=== PATIENT | male | born 1940 | race Caucasian/White ===

== ENCOUNTER 2017-11-02 07:47 | Inpatient (IN) ==
--- OUTSIDE RECORDS SUMMARY | 2017-11-02 08:06 | External Medical Summary | Continuity of Care Document ---
:1940 Author Organization [facility] Allergies Active Description Code Type Severity Reaction Onset Reported/ Identified Relationship Clinical to Patient Status Yes No Known NKDA N/A N/A 10/24/2017 Drug Allergy Medications Medication Packaging Start Date Stop Date Route Dosage Sig 04/14/2017 10/24/2017 1 Primidone 50 MG BID Oral Tablet 04/14/2017 10/14/2017 1 Prednisone 50 MG Q1D Oral Tablet 10/25/2017 10/31/2017 1 quetiapine 25 MG BID Oral Tablet [Seroquel] Problems Date Dx Attending Type Code Diagnosis Diagnosed By Coded 04/14/2017 LUIS CASTAÑEDA G25.0 Essential tremor 04/14/2017 LUIS CASTAÑEDA M79.601 Pain in right arm 04/14/2017 LUIS CASTAÑEDA R53.83 Other fatigue 09/21/2017 F F17.210 Nicotine dependence, cigarettes, uncomplicated 09/21/2017 F F32.9 Major depressive disorder, single episode, unspecified 09/21/2017 F I10 Essential (primary) hypertension 09/21/2017 F I25.10 Atherosclerotic heart disease of [place] coronary artery without angina pectoris 09/21/2017 F I50.9 Heart failure, unspecified 09/21/2017 F J44.1 Chronic obstructive pulmonary disease with (acute) exacerbation 09/21/2017 F J96.22 Acute and chronic respiratory failure with hypercapnia 09/21/2017 F R06.89 Other abnormalities of breathing 09/21/2017 F R29.6 Repeated falls 09/21/2017 F R41.0 Disorientation, unspecified 2017 F R63.4 Abnormal weight loss 10/14/2017 LUIS CASTAÑEDA F17.210 Nicotine dependence, cigarettes, uncomplicated 10/14/2017 LUIS CASTAÑEDA F32.9 Major depressive disorder, single episode, unspecified 10/14/2017 LUIS CASTAÑEDA G47.36 Sleep related hypoventilation in conditions classified elsewhere 10/14/2017 LUIS CASTAÑEDA I10 Essential (primary) hypertension 10/14/2017 LUIS CASTAÑEDA I25.10 Atherosclerotic heart disease of [place] coronary artery without angina pectoris 10/14/2017 LUIS CASTAÑEDA J44.1 Chronic obstructive pulmonary disease with (acute) exacerbation 10/14/2017 LUIS CASTAÑEDA J96.22 Acute and chronic respiratory failure with hypercapnia 10/14/2017 LUIS CASTAÑEDA R29.6 Repeated falls 10/14/2017 LUIS CASTAÑEDA R41.0 Disorientation, unspecified 10/24/2017 HARSH VILLEDA I10 Essential (primary) hypertension 10/24/2017 HARSH VILLEDA K59.00 Constipation, unspecified 10/24/2017 HARHS VILLEDA L03.90 Cellulitis, unspecified 10/24/2017 HARSH VILLEDA R45.1 Restlessness and agitation 10/24/2017 HARSH VILLEDA R60.0 Localized edema Procedures Code Description [place] [id number] OFFICE VISIT 04/14/2017 DETAILED [id number] OFFICE VISIT 09/21/2017 HIGH Results There is no data. Encounters ACCT Visit Discharge Status Pt. Type Provider Facility Loc./Unit Complaint No. Date/Time [id number] 10/24/2017 10/24/2017 CLS Outpatient CHICHOT PIMG 08:32:00 23:59:59 , HARSH [id number] 10/14/2017 10/14/2017 CLS Outpatient GARRY, PIMG 09:31:00 23:59:59 LUIS [id number] 04/14/2017 04/14/2017 CLS Outpatient GARRY, PIMG 14:22:00 23:59:59 LUIS [id number] 10/31/2017 ACT Outpatient GARRY, PIMG 11:25:00 LUIS [id number] 10/25/2017 Document 16:57:00 Registration [id number] 09/21/2017 Document 15:57:00 Registration [id number] 04/14/2017 Document 14:22:00 Registration
[2017-11-02] MEDS ORDERED: SALINE FLUSH 10ml SYRINGE IVF PRN (08:14)
[2017-11-02] MEDS ORDERED: FUROSEMIDE 40 MG/4 ML INJECTION IVP ONE (08:16)
--- NOTE | 2017-11-02 08:25 | Emergency Department Report ---
Medical Clearance HPI - General Stated complaint: [facility] eval Time Seen by Provider: 11/02/17 07:53 Source: patient, RN notes reviewed, old records reviewed, other ([facility] coordinator) Mode of arrival: ambulatory Limitations: altered mental status (Dementia) - History of Present Illness HPI Narrative: 77yo man presented to the ER by his [facility] facility ([place], [place]) for worsening mental status. Pt has been preliminarily evaluated for treatment in [facility]. Presented to the ER for medical clearance. Pt arrives confused, combative, but somnolent. After difficulty obtaining initial labs, pt fell back asleep almost immediately. MD complaint: medical clearance requested Onset (ago): week(s) Reason for Medical Clearance: medical condition, psychiatric condition Place: home Alleged Intoxication: No Compliant with Home Medications: Yes Associated Symptoms: denies other symptoms Treatments Prior to Arrival: medication Home medications: Home Medications Medication Instructions Recorded Confirmed Albuterol/Ipratropium [Duoneb] 1 unit AEROSOL 5XD 11/02/17 11/02/17 Amoxicillin/Potassium Clav 1 each PO BID 11/02/17 11/02/17 [Augmentin 875-125 Tablet] CALCIUM CARBONATE Chewable [Tums] 1,000 mg PO Q4H PRN 11/02/17 11/02/17 CALCIUM CARBONATE Chewable [Tums] 2 tab PO AM 11/02/17 11/02/17 Doxycycline [Vibramycin] 100 mg PO BID 11/02/17 11/02/17 Furosemide [Lasix] 80 mg PO BID 11/02/17 11/02/17 Haloperidol [Haldol] 5 mg PO PRN PRN 11/02/17 11/02/17 LORazepam [Ativan] 1 mg PO QID 11/02/17 11/02/17 Morphine Sulfate 0.5 mg PO Q1H PRN 11/02/17 11/02/17 Morphine Sulfate [Morphine Sulfate 15 mg PO BID 11/02/17 11/02/17 ER] Oseltamivir Cap [Tamiflu] 75 mg PO DAILY 11/02/17 11/02/17 PEG 3350 17gm PACKET [Miralax] 17 gm PO BID 11/02/17 11/02/17 Potassium Chloride [K-Tab ER] 20 meq PO AM 11/02/17 11/02/17 Quetiapine Fumarate [Seroquel] 100 mg PO HS 11/02/17 11/02/17 Quetiapine [Seroquel] 50 mg PO DAILY 11/02/17 11/02/17 Simethicone 125 mg PO Q6H PRN 11/02/17 11/02/17 Tamsulosin [Flomax] 0.4 mg PO HS 11/02/17 11/02/17 Allergies/Adverse reactions: Allergies Allergy/AdvReac Type Severity Reaction Status Date / Time No Known Allergies Allergy Verified 11/02/17 09:11 Review of Systems Limitations: ROS unobtainable due to patient's medical condition PFSH Patient Stated Medical History Angina Yes Congestive Heart Failure Yes Coronary Artery Disease Yes Hypertension Yes Myocardial Infarction Yes Chronic Obstructive Pulmonary Yes Disease (COPD) Other GI Yes: POSTCHOLECYSTECTOMY SYNDROME Other Yes: HX BLADDER CANCER Depression Yes Medical History Updates: Metabolic encephalopathy. HL. AMI. PVD. Nicotine dependence. CHF. Bladder malignancy. MDD. CAD. Postcholecystectomy syndrome. HTN. COPD - Social History Smoking status: Former smoker Physical Exam - Limitations Limitations: no limitations - General General appearance: alert, in no apparent distress - Normal Exams: Head:: Normocephalic without trauma Eyes:: Pupils are PERRLA w/ EOMI, No scleral icterus, irritation, or foreign bodies noted ENMT:: No facial trauma, nasal exudates, pharyngeal erythema, or exudates are noted Neck:: Full range of motion, without adenopathy Lymphatic:: No lymphadenopathy Musculoskeletal:: No tenderness, or deformity noted, good range of motion, all extremities - Chest Chest inspection: Present: normal inspection, symmetric chest wall rise. Absent : tenderness, rash - Respiratory Respiratory exam: Present: crackles (In LL). Absent: normal lung sounds bilaterally (Decreased air movement throughout), respiratory distress, wheezes, prolonged expiratory phase - Cardiovascular Cardiovascular exam: Present: regular rate, normal rhythm, normal heart sounds. Absent: systolic murmur, diastolic murmur - Abdominal Exam Abdominal exam: Present: soft, normal bowel sounds. Absent: distention, tenderness, guarding, rebound, rigidity - Extremities Exam Extremities exam: Present: full ROM, normal capillary refill, pedal edema ( Severe pitting edema (4+) with weeping to pts knees b/l), other (Stasis dermatitis with scaling to knee). Absent: normal inspection, tenderness, joint swelling - Skin Skin exam: Present: warm, dry, intact, rash (See extremity exam notes) - Neurological Exam Neurological exam: Present: CN II-XII intact, reflexes normal. Absent: alert, oriented X3, normal gait (Halting, ataxic), motor sensory deficit - Psychiatric Psychiatric exam: Present: flat affect Course - Consultations Consultation #1: Dr. Rasheed: No indications for urgent diaphragmatic hernia repair. Likely chronic; unlikely to require repair in the near future until stable for surgery. Time: 09:11 Consultation #2: Hospitalist: Unclear whether pts sx are chronic or acute. Will present to ER to eval and help determine dispo ([facility] with consult or admission locally). If pts resp panel is positive; will admit. If not, can consult in [facility]. Time: 09:33 Vital Signs Temperature 97.6 F 11/02/17 07:47 Pulse Rate 84 11/02/17 07:47 Respiratory Rate 18 11/02/17 07:47 Blood Pressure 139/64 11/02/17 07:47 Pulse Oximetry 95 11/02/17 07:47 Temperature 97.6 F 11/02/17 07:47 Pulse Rate 81 11/02/17 10:45 Respiratory Rate 12 11/02/17 10:45 Blood Pressure 127/58 11/02/17 10:45 Pulse Oximetry 90 11/02/17 10:45 Medical Clearance - [facility] Narrative Medical decision making narrative: Pt with chronic medical issues without acute changes today. Resp panel is negative. Will contact [facility] for admission. - Differential Diagnosis Likely: urinary tract infection (encephalopathy, uremia, dementia, hypoventilation) - Medical Records Attestation: I reviewed the patient's medical records. - Lab Data Attestation: I reviewed the patient's lab results. Result diagrams: 11/02/17 08:03 11/02/17 08:03 Lab Results 11/02/17 11/02/17 11/02/17 Range/Units 07:59 08:03 08:03 WBC 6.5 (4.5-11.0) T/MM3 RBC 4.84 (4.50-5.90) M/MM3 Hgb 14.7 (13.5-17.5) GM/DL Hct 46.0 (41-53) % MCV 95.0 (80-100) UM3 MCH 30.4 (26-34) UUG MCHC 32.0 (31-37) GM/DL RDW Std Deviation 44.2 (36.9-50.2) FL Plt Count 243 (130-400) T/MM3 MPV 9.1 L (9.4-12.4) UM3 Immature Gran % (Auto) 0.3 (0.0-0.5) % Neut % (Auto) 56.0 (33-66) % Lymph % (Auto) 29.0 (23-45) % [place] % (Auto) 9.5 H (0-9.0) % Eos % (Auto) 4.3 H (0-4) % Baso % (Auto) 0.9 (0-2) % Neut # (Auto) 3.6 (1.8-7.7) T/MM3 Lymph # (Auto) 1.9 (1-4.8) T/MM3 [place] # (Auto) 0.6 (0-0.8) T/MM3 Eos # (Auto) 0.3 (0-0.5) T/MM3 Baso # (Auto) 0.1 (0-0.2) T/MM3 Abs Immat Gran (auto) 0.02 (0.00-0.03) T/MM3 VBG pH (7.31-7.41) VBG pCO2 (40-52) MMHG VBG pO2 (40-52) MMHG VBG HCO3 (22-26) MEQ/L VBG Total CO2 MEQ/L VBG O2 Saturation % VBG Base Excess (-2.0-2.0) MMOL/L O2 Delivery Method FiO2 % Turbidity < 20 (0-20) Sodium 143 (134-144) MEQ/L Potassium 3.7 (3.6-5) MEQ/L Chloride 101 (98-107) MEQ/L Carbon Dioxide 31 H (22-30) MEQ/L Anion Gap 11 (5-15) MEQ/L BUN 13.0 (9-20) MG/DL Creatinine 1.1 (0.8-1.5) MG/DL GFR Calculation 65 BUN/Creatinine Ratio 12 (6-26) RATIO Glucose 101 (75-110) MG/DL Calculated Osmolality 275 (261-280) MOSM/KG Calcium 9.7 (8.4-10.2) MG/DL Total Bilirubin 0.70 (0.20-1.30) MG/DL Icterus Index < 2 (0-7) AST 31 (17-59) U/L ALT 35 (21-72) U/L Alkaline Phosphatase 142 H (38-126) U/L Ammonia (9-33) UMOL/L Troponin I (0-0.12) ng/ml B-Natriuretic Peptide (0-175) pg/mL Total Protein 7.5 (6.3-8.2) G/DL Albumin 4.1 (3.5-5.0) G/DL Globulin 3.4 (2.4-3.6) G/DL Albumin/Globulin Ratio 1.2 (1.1-2.2) RATIO TSH 3.18 (0.47-4.68) MIU/L Specimen Hemolysis < 15 (0-25) Ur Collection Type Urine, clean catch Urine Color Yellow (YELLOW) Urine Clarity Clear Urine pH 6.0 (5.0-8.0) Ur Specific [place] 1.010 L (1.015-1.025) Urine Protein Negative (NEGATIVE) Urine Glucose (UA) Negative (NEGATIVE) Urine Ketones Negative (NEGATIVE) Urine Occult Blood Negative (NEGATIVE) Urine Nitrate Negative (NEGATIVE) Urine Bilirubin Negative (NEGATIVE) Urine Urobilinogen 0.2 (NORMAL) EU/DL Ur Leukocyte Esterase Negative (NEGATIVE) Urinalysis Comment Microscopic not ind. Salicylates < 1.0 L (2-20) MG/DL Urine Opiates Screen ng/mL Ur Oxycodone Screen ng/mL Urine Methadone Screen ng/mL Ur Propoxyphene Screen ng/mL Acetaminophen < 10 L (10-30) UG/ML Ur Barbiturates Screen ng/mL U Tricyclic Antidepress ng/mL Ur Phencyclidine Scrn ng/mL Ur Amphetamines Screen ng/mL U Methamphetamines Scrn ng/mL U Benzodiazepines Scrn ng/mL Urine Cocaine Screen ng/mL U Cannabinoids Screen ng/mL Ur Drug Screen Confirm Alcohol, Quantitative <10 (<10) MG/DL Adenovirus (PCR) (Negative) B.parapertussis DNA PCR (Negative) C. pneumoniae DNA (PCR) (Negative) Coronavirus OC43 (PCR) (Negative) Coronavirus HKU1 (PCR) (Negative) Coronavirus 229E (PCR) (Negative) Coronavirus NL63 (PCR) (Negative) Human Metapneumovir PCR (Negative) Influenza Type A (PCR) (Negative) Influenza Type B (PCR) (Negative) M. pneumoniae (PCR) (Negative) Parainfluenza 1 (PCR) (Negative) Parainfluenza 2 (PCR) (Negative) Parainfluenza 3 (PCR) (Negative) Parainfluenza 4 (PCR) (Negative) RSV (PCR) (Negative) Entero/Rhino (PCR) (Negative) 11/02/17 11/02/17 11/02/17 Range/Units 08:03 08:03 08:03 WBC (4.5-11.0) T/MM3 RBC (4.50-5.90) M/MM3 Hgb (13.5-17.5) GM/DL Hct (41-53) % MCV (80-100) UM3 MCH (26-34) UUG MCHC (31-37) GM/DL RDW Std Deviation (36.9-50.2) FL Plt Count (130-400) T/MM3 MPV (9.4-12.4) UM3 Immature Gran % (Auto) (0.0-0.5) % Neut % (Auto) (33-66) % Lymph % (Auto) (23-45) % [place] % (Auto) (0-9.0) % Eos % (Auto) (0-4) % Baso % (Auto) (0-2) % Neut # (Auto) (1.8-7.7) T/MM3 Lymph # (Auto) (1-4.8) T/MM3 [place] # (Auto) (0-0.8) T/MM3 Eos # (Auto) (0-0.5) T/MM3 Baso # (Auto) (0-0.2) T/MM3 Abs Immat Gran (auto) (0.00-0.03) T/MM3 VBG pH (7.31-7.41) VBG pCO2 (40-52) MMHG VBG pO2 (40-52) MMHG VBG HCO3 (22-26) MEQ/L VBG Total CO2 MEQ/L VBG O2 Saturation % VBG Base Excess (-2.0-2.0) MMOL/L O2 Delivery Method FiO2 % Turbidity (0-20) Sodium (134-144) MEQ/L Potassium (3.6-5) MEQ/L Chloride (98-107) MEQ/L Carbon Dioxide (22-30) MEQ/L Anion Gap (5-15) MEQ/L BUN (9-20) MG/DL Creatinine (0.8-1.5) MG/DL GFR Calculation BUN/Creatinine Ratio (6-26) RATIO Glucose (75-110) MG/DL Calculated Osmolality (261-280) MOSM/KG Calcium (8.4-10.2) MG/DL Total Bilirubin (0.20-1.30) MG/DL Icterus Index (0-7) AST (17-59) U/L ALT (21-72) U/L Alkaline Phosphatase (38-126) U/L Ammonia (9-33) UMOL/L Troponin I < 0.012 (0-0.12) ng/ml B-Natriuretic Peptide 344 H (0-175) pg/mL Total Protein (6.3-8.2) G/DL Albumin (3.5-5.0) G/DL Globulin (2.4-3.6) G/DL Albumin/Globulin Ratio (1.1-2.2) RATIO TSH (0.47-4.68) MIU/L Specimen Hemolysis < 15 (0-25) Ur Collection Type Urine Color (YELLOW) Urine Clarity Urine pH (5.0-8.0) Ur Specific [place] (1.015-1.025) Urine Protein (NEGATIVE) Urine Glucose (UA) (NEGATIVE) Urine Ketones (NEGATIVE) Urine Occult Blood (NEGATIVE) Urine Nitrate (NEGATIVE) Urine Bilirubin (NEGATIVE) Urine Urobilinogen (NORMAL) EU/DL Ur Leukocyte Esterase (NEGATIVE) Urinalysis Comment Salicylates (2-20) MG/DL Urine Opiates Screen Positive ng/mL Ur Oxycodone Screen Negative ng/mL Urine Methadone Screen Negative ng/mL Ur Propoxyphene Screen Negative ng/mL Acetaminophen (10-30) UG/ML Ur Barbiturates Screen Negative ng/mL U Tricyclic Antidepress Positive ng/mL Ur Phencyclidine Scrn Negative ng/mL Ur Amphetamines Screen Negative ng/mL U Methamphetamines Scrn Negative ng/mL U Benzodiazepines Scrn Positive ng/mL Urine Cocaine Screen Negative ng/mL U Cannabinoids Screen Negative ng/mL Ur Drug Screen Confirm Sent out Alcohol, Quantitative (<10) MG/DL Adenovirus (PCR) (Negative) B.parapertussis DNA PCR (Negative) C. pneumoniae DNA (PCR) (Negative) Coronavirus OC43 (PCR) (Negative) Coronavirus HKU1 (PCR) (Negative) Coronavirus 229E (PCR) (Negative) Coronavirus NL63 (PCR) (Negative) Human Metapneumovir PCR (Negative) Influenza Type A (PCR) (Negative) Influenza Type B (PCR) (Negative) M. pneumoniae (PCR) (Negative) Parainfluenza 1 (PCR) (Negative) Parainfluenza 2 (PCR) (Negative) Parainfluenza 3 (PCR) (Negative) Parainfluenza 4 (PCR) (Negative) RSV (PCR) (Negative) Entero/Rhino (PCR) (Negative) 11/02/17 11/02/17 11/02/17 Range/Units 08:43 08:43 09:43 WBC (4.5-11.0) T/MM3 RBC (4.50-5.90) M/MM3 Hgb (13.5-17.5) GM/DL Hct (41-53) % MCV (80-100) UM3 MCH (26-34) UUG MCHC (31-37) GM/DL RDW Std Deviation (36.9-50.2) FL Plt Count (130-400) T/MM3 MPV (9.4-12.4) UM3 Immature Gran % (Auto) (0.0-0.5) % Neut % (Auto) (33-66) % Lymph % (Auto) (23-45) % [place] % (Auto) (0-9.0) % Eos % (Auto) (0-4) % Baso % (Auto) (0-2) % Neut # (Auto) (1.8-7.7) T/MM3 Lymph # (Auto) (1-4.8) T/MM3 [place] # (Auto) (0-0.8) T/MM3 Eos # (Auto) (0-0.5) T/MM3 Baso # (Auto) (0-0.2) T/MM3 Abs Immat Gran (auto) (0.00-0.03) T/MM3 VBG pH 7.400 (7.31-7.41) VBG pCO2 58 H (40-52) MMHG VBG pO2 19 L (40-52) MMHG VBG HCO3 36 H (22-26) MEQ/L VBG Total CO2 37.7 MEQ/L VBG O2 Saturation 29.0 % VBG Base Excess 9.2 H (-2.0-2.0) MMOL/L O2 Delivery Method Room air FiO2 % 21.0 Turbidity (0-20) Sodium (134-144) MEQ/L Potassium (3.6-5) MEQ/L Chloride (98-107) MEQ/L Carbon Dioxide (22-30) MEQ/L Anion Gap (5-15) MEQ/L BUN (9-20) MG/DL Creatinine (0.8-1.5) MG/DL GFR Calculation BUN/Creatinine Ratio (6-26) RATIO Glucose (75-110) MG/DL Calculated Osmolality (261-280) MOSM/KG Calcium (8.4-10.2) MG/DL Total Bilirubin (0.20-1.30) MG/DL Icterus Index (0-7) AST (17-59) U/L ALT (21-72) U/L Alkaline Phosphatase (38-126) U/L Ammonia < 9 L (9-33) UMOL/L Troponin I (0-0.12) ng/ml B-Natriuretic Peptide (0-175) pg/mL Total Protein (6.3-8.2) G/DL Albumin (3.5-5.0) G/DL Globulin (2.4-3.6) G/DL Albumin/Globulin Ratio (1.1-2.2) RATIO TSH (0.47-4.68) MIU/L Specimen Hemolysis (0-25) Ur Collection Type Urine Color (YELLOW) Urine Clarity Urine pH (5.0-8.0) Ur Specific [place] (1.015-1.025) Urine Protein (NEGATIVE) Urine Glucose (UA) (NEGATIVE) Urine Ketones (NEGATIVE) Urine Occult Blood (NEGATIVE) Urine Nitrate (NEGATIVE) Urine Bilirubin (NEGATIVE) Urine Urobilinogen (NORMAL) EU/DL Ur Leukocyte Esterase (NEGATIVE) Urinalysis Comment Salicylates (2-20) MG/DL Urine Opiates Screen ng/mL Ur Oxycodone Screen ng/mL Urine Methadone Screen ng/mL Ur Propoxyphene Screen ng/mL Acetaminophen (10-30) UG/ML Ur Barbiturates Screen ng/mL U Tricyclic Antidepress ng/mL Ur Phencyclidine Scrn ng/mL Ur Amphetamines Screen ng/mL U Methamphetamines Scrn ng/mL U Benzodiazepines Scrn ng/mL Urine Cocaine Screen ng/mL U Cannabinoids Screen ng/mL Ur Drug Screen Confirm Alcohol, Quantitative (<10) MG/DL Adenovirus (PCR) Negative (Negative) B.parapertussis DNA PCR Negative (Negative) C. pneumoniae DNA (PCR) Negative (Negative) Coronavirus OC43 (PCR) Negative (Negative) Coronavirus HKU1 (PCR) Negative (Negative) Coronavirus 229E (PCR) Negative (Negative) Coronavirus NL63 (PCR) Negative (Negative) Human Metapneumovir PCR Negative (Negative) Influenza Type A (PCR) Negative (Negative) Influenza Type B (PCR) Negative (Negative) M. pneumoniae (PCR) Negative (Negative) Parainfluenza 1 (PCR) Negative (Negative) Parainfluenza 2 (PCR) Negative (Negative) Parainfluenza 3 (PCR) Negative (Negative) Parainfluenza 4 (PCR) Negative (Negative) RSV (PCR) Negative (Negative) Entero/Rhino (PCR) Negative (Negative) - Radiology Data Attestation: I reviewed the patient's radiology results. CXR: Impression: 1. Multiple abnormalities including a probable large diaphragmatic defects containing multiple loops of bowel. 2. Bilateral pleural thickening or mass could be due to old trauma, pleural lipomas or pleural masses. Recommend correlation with prior studies to determine the chronicity of this finding. 3. No obvious pneumonia or congestive failure. - EKG Data EKG #1 EKG attestation: Yes: I reviewed and interpreted this EKG. EKG shows normal: sinus rhythm Rhythm: other (SVCs) Voltage: decreased voltage throughout (C/w pulm dz; RVH) Interpretation: other (RVH; c/w pulm dz) Disposition Clinical Impression: Dementia with behavioral disturbance Qualifiers: Dementia type: unspecified type Qualified Code(s): F03.91 - Unspecified dementia with behavioral disturbance Disposition: 64 To [facility] Print Language: Lao Condition: Stable Prescriptions: No Action CALCIUM CARBONATE Chewable [Tums] 1,000 mg PO Q4H PRN PRN Reason: Epigastric Distress Albuterol/Ipratropium [Duoneb] 1 unit AEROSOL 5XD Morphine Sulfate 0.5 mg PO Q1H PRN PRN Reason: Pain Haloperidol [Haldol] 5 mg PO PRN PRN PRN Reason: Agitation LORazepam [Ativan] 1 mg PO QID Morphine Sulfate [Morphine Sulfate ER] 15 mg PO BID PEG 3350 17gm PACKET [Miralax] 17 gm PO BID Doxycycline [Vibramycin] 100 mg PO BID Amoxicillin/Potassium Clav [Augmentin 875-125 Tablet] 1 each PO BID CALCIUM CARBONATE Chewable [Tums] 2 tab PO AM Tamsulosin [Flomax] 0.4 mg PO HS Oseltamivir Cap [Tamiflu] 75 mg PO DAILY Quetiapine Fumarate [Seroquel] 100 mg PO HS Potassium Chloride [K-Tab ER] 20 meq PO AM Simethicone 125 mg PO Q6H PRN PRN Reason: Indigestion Furosemide [Lasix] 80 mg PO BID Quetiapine [Seroquel] 50 mg PO DAILY Referrals: Dat Szymanski MD [Family Provider] - Time of Disposition: 11:38 - Seen By: physician
--- NOTE | 2017-11-02 08:33 | XRay Report ---
Indication: clearance PROCEDURE: XR chest 1V: Encounter: Initial Comparison: None Findings: There is an abnormal appearance to the lower chest. There is diffuse basilar opacity with multiple foci of gas probably representing multiple bowel loops in a large diaphragmatic defect and hiatal hernia. There is also smoothly marginated opacity along the right and left lateral lower chest wall measuring up to 3 cm in thickness on the right and 2 cm in thickness on the left. This most likely represents pleural thickening or mass. Mild emphysema is also seen. No pneumothorax or effusion. No definite pneumonia. Cardiac silhouette is moderately enlarged. Pulmonary vascularity appears normal. Impression: 1. Multiple abnormalities including a probable large diaphragmatic defects containing multiple loops of bowel. 2. Bilateral pleural thickening or mass could be due to old trauma, pleural lipomas or pleural masses. Recommend correlation with prior studies to determine the chronicity of this finding. 3. No obvious pneumonia or congestive failure. .
[2017-11-02] MEDS ORDERED: FentaNYL 100 MCG/2 ML INJECTION IVP ONE (08:42)
[2017-11-02] MEDS ORDERED: CALCIUM CARBONATE Chewable 500mg TABLET PO PRN (12:52)
[2017-11-02] MEDS ORDERED: SIMETHICONE 125 MG CAPSULE PO PRN (12:52)
[2017-11-02] MEDS ORDERED: HALOPERIDOL 0.5 MG TABLET PO PRN (12:52)
[2017-11-02] MEDS ORDERED: HALOPERIDOL 5 MG/ML INJECTION IM PRN (12:52)
[2017-11-02] MEDS ORDERED: LORazepam 0.5 MG TABLET PO PRN (12:52)
[2017-11-02 13:12] VITALS: BMI 27.8
[2017-11-02] MEDS: LORazepam 1 MG TABLET PO SCH ×2 (16:34→20:58)
[2017-11-02] MEDS: AMOX/CLAV 875 MG/125 MG TABLET PO SCH (16:34)
[2017-11-02] MEDS: CALCIUM CARBONATE Chewable 500mg TABLET PO SCH (16:34)
[2017-11-02] MEDS: ALBUTEROL/IPRATROPIUM 2.5mg-0.5mg/3ml NEB AEROSOL SCH ×4 (16:35→19:36)
[2017-11-02] MEDS: FUROSEMIDE 80 MG TABLET PO SCH (17:27)
--- NOTE | 2017-11-02 18:21 | History & Physical Report ---
History of Present Illness Date: 11/02/17 Chief complaint: agitation HPI: Mr Bull is a 77 yr old gentleman who resides at [facility] in [place], [place]. It is reported that for the last several days he has had increased agitation in behaviors including attempting to urinate on a copy machine, confronting staff, trying to open medication cart, along with increased confusion at night. Patient was sent to [facility] emergency room for medical evaluation with planned acceptance to the [facility] for further psychiatric evaluation and treatment. Clinical workup was performed. CBC, chem strip out, TSH, urinalysis, troponin were all normal. Chest x-ray did not reveal any acute infiltrates or edema. As per records, patient was placed on Tamiflu on 10/27 for prophylaxis. Respiratory panel was obtained in the ER, however, it was all negative. Patient was accepted and admitted to the [facility] unit for further evaluation and treatment. Review of Systems All systems PM: 10-point ROS was reviewed, no additional remarkable complaints except Review of systems: At time of examination antonio denies ROS. He states his lower ext edema is "baseline" and denies tenderness. Past Medical History Patient Stated Medical History COPD, intermittent chronic oxygen use 2 liters. Hypertension. Congestive heart failure. Peripheral vascular disease Coronary artery disease with [place] history. Hyperlipidemia. Depression. History of bladder cancer. History of metabolic encephalopathy. Chronic lower extremity edema. Chronic tobacco dependence Surgical History: Tonsillectomy. Cholecystectomy. Cardiac bypass 3. Bladder procedures Family History Updates: Mother- in her 70s from dementia - Social History Smoking status: Current every day smoker Substance use type: does not use Alcohol intake frequency: does not drink Housing: custodial ([place], [place]) Current occupational status: retired Social history: PCP Dr Dat Szymanski Medications Home Medications Medication Instructions Recorded Confirmed Type Albuterol/Ipratropium [Duoneb] 1 unit AEROSOL 5XD 11/02/17 11/02/17 History Amoxicillin/Potassium Clav 1 each PO BID 11/02/17 11/02/17 History [Augmentin 875-125 Tablet] CALCIUM CARBONATE Chewable [Tums] 1,000 mg PO Q4H PRN 11/02/17 11/02/17 History CALCIUM CARBONATE Chewable [Tums] 2 tab PO AM 11/02/17 11/02/17 History Doxycycline [Vibramycin] 100 mg PO BID 11/02/17 11/02/17 History Furosemide [Lasix] 80 mg PO BID 11/02/17 11/02/17 History Haloperidol [Haldol] 5 mg PO PRN PRN 11/02/17 11/02/17 History LORazepam [Ativan] 1 mg PO QID 11/02/17 11/02/17 History Morphine Sulfate 0.5 mg PO Q1H PRN 11/02/17 11/02/17 History Morphine Sulfate [Morphine Sulfate 15 mg PO BID 11/02/17 11/02/17 History ER] Oseltamivir Cap [Tamiflu] 75 mg PO DAILY 11/02/17 11/02/17 History PEG 3350 17gm PACKET [Miralax] 17 gm PO BID 11/02/17 11/02/17 History Potassium Chloride [K-Tab ER] 20 meq PO AM 11/02/17 11/02/17 History Quetiapine Fumarate [Seroquel] 100 mg PO HS 11/02/17 11/02/17 History Quetiapine [Seroquel] 50 mg PO DAILY 11/02/17 11/02/17 History Simethicone 125 mg PO Q6H PRN 11/02/17 11/02/17 History Tamsulosin [Flomax] 0.4 mg PO HS 11/02/17 11/02/17 History Allergies Allergy/AdvReac Type Severity Reaction Status Date / Time No Known Allergies Allergy Verified 11/02/17 09:11 Exam Vital Signs: Temperature 97.4 F 11/02/17 16:00 Pulse Rate 73 11/02/17 17:25 Respiratory Rate 16 11/02/17 17:25 Blood Pressure 99/58 11/02/17 16:00 Pulse Oximetry 97 11/02/17 17:25 Height/Weight/BMI: Height 1.88 m Weight 98.5 kg Body Mass Index 27.8 - Constitutional Present: no acute distress, well nourished, well developed - Routine HEENT Exam Eye: Present: EOMI ENT: Present: mucous membranes moist, dentition normal - Routine Respiratory Exam Present: CTA bilaterally. Absent: wheezes - Routine Cardiovascular Exam Present: RRR, S1, S2. Absent: murmur - Routine Abdominal Exam Present: soft, normoactive bowel sounds, non distended. Absent: tenderness - Routine Extremities Exam Present: edema (1-2+) Comments: Erythema bilateral lower ext - Routine Back/Spine/Pelvis Exam Back/Spine: Present: full ROM - Routine Skin Exam Present: intact, dry, warm - Routine Neurological Exam Present: alert, oriented X3, CN II-XII intact, moving all extremities - Routine Psychiatric Exam Present: cooperative Results - Labs CBC & Chem 7: 11/02/17 08:03 11/02/17 08:03 Assessment and Plan (1) Abnormal behavior Current visit: Yes Status: Acute (2) PVD (peripheral vascular disease) Current visit: Yes Status: Acute Assessment and Plan: Impression Increased behaviors Acute on chronic peripheral edema- recent increased Lasix dose Chronic PVD HTN CHF COPD with o2 use PRN and Night CAD Hyperlipidemia Depression Plan Agree with admission to [facility] under the care of Dr Sharpe for evaluation of increase behaviors Medically he is noted to have erythema and mild edema to lower ext. It is unclear is baseline status of lower ext as he is not from locally. In reviewing old records it does appear that he chronically has lower extremity edema, accompanied with peripheral vascular disease. He chronically utilizes Sachin wraps to bilateral lower extremities. Previously from 10/19-10/29/17 patient was on Cefdinir for treatment of questionable lower extremity cellulitis. Then yesterday on 11/01/17 he was placed on Augmentin and doxycycline for ongoing tx of questionable cellulitis. Although this appears to be more inflammatory- we will continue antibiotics at this time and will add topical steroid cream to use BID to bilateral lower ext. Continue to follow carefully, Consult to wound team to make recommendations for wound care/ wraps. Upon reviewing custodial are. It does appear that Lasix dosing has continued to be titrated up since the beginning of October. Originally patient was on 40 milligrams twice a day, however, then on 10/24. This was increased to 60 milligrams twice a day. Then on 11/01/17 this was increased to 80 milligrams twice a day. Will need to monitor patient's fluid status, electro-lytes and renal function carefully given this increased dose of diuretics. Will have nursing staff weight daily. Encourage patient to participate in unit activities and provide a safe environment Hospital services will continue to follow patient medically managed. Consent comorbidities. At time of discharge medical care will return to primary care provider in [place], [place], Dr. Dat Szymanski DVT Prophylaxis: GUILLERMO Put[place] Resuscitation Status: Do Not Resuscitate - Physician Narrative Physician: Amirah Douglas MD Narrative: Date: 11/02/17 Time: 2029 I have independently evaluated and examined this patient. I reviewed the chart, the patient's history, and the [employer]/PA's documented findings as above. We discussed and formulated the assessment and plan as above with additions as below: Mr. Bull was seen late this afternoon. He indicated that he was admitted for difficulty breathing due to underlying COPD. He reports that he generally does not use oxygen and that he was not short of breath at the time of my visit. He additionally described increased edema in his legs for about 3 days and that they've been red. He reported having moved into [facility] a week or 2 ago although accuracy of this is unclear. Examination revealed the patient to be alert and talkative; afebrile Facial structures are symmetric, EOMI, tongue midline Respirations nonlabored with good airflow and a few crackles at the bases Patient moves all extremities well, motor tone/power normal, no drift to the upper extremities and travel agency manager are 4/5 bilaterally. Lower extremity power was not formally assessed but he is getting up and down from the bed without assistance and ambulates without difficulty for favoring one leg. Sensation is intact to light touch 4 extremities and across the face. There is +2 edema bilaterally lower extremities with significant erythema present and warmth Laboratory data reviewed-normal white count, minimal elevation in BNP. Mild renal insufficiency with GFR 65. UDS positive for opiates, tricyclics, and benzos. Chest x-ray reviewed by myself reveals cardiomegaly and clear lungs; with probable hiatal hernia and suspected pleural thickening per radiology report. EKG also reviewed revealing sinus rhythm with PACs, borderline bundle branch block, RVH, inferior Q's suggesting prior inferior [place], slow R-wave progression. Probable underlying dementia; unclear if history of moved to nursing facility is accurate. Significant stasis dermatitis but there is suggestion of a component of cellulitis as well. Add steroid cream as described above, may benefit from topical antifungal as well. Continue recently initiated antibiotics as it's unclear what his white count was when they were initiated. Likely he has some component of secondary pulmonary hypertension due to COPD which may be contributing to edema, possible there is a component of obstructive sleep apnea. There was an initial report that patient was on hospice at the nursing facility- will need clarification. Adriana discussed plans with Dr. Ernst earlier. Hospital Course Summary Disclaimer: The visit summary below is not to be considered part of the above Progress Note. Hospital Course: Impression Increased behaviors Acute on chronic peripheral edema- recent increased Lasix dose Chronic PVD HTN CHF COPD with o2 use PRN and Night CAD Hyperlipidemia Depression Plan Agree with admission to [facility] under the care of Dr Sharpe for evaluation of increase behaviors Medically he is noted to have erythema and mild edema to lower ext. It is unclear is baseline status of lower ext as he is not from locally. In reviewing old records it does appear that he chronically has lower extremity edema, accompanied with peripheral vascular disease. He chronically utilizes Sachin wraps to bilateral lower extremities. Previously from 10/19-10/29/17 patient was on Cefdinir for treatment of questionable lower extremity cellulitis. Then yesterday on 11/01/17 he was placed on Augmentin and doxycycline for ongoing tx of questionable cellulitis. Although this appears to be more inflammatory- we will continue antibiotics at this time and will add topical steroid cream to use BID to bilateral lower ext. Continue to follow carefully, Consult to wound team to make recommendations for wound care/ wraps. Upon reviewing custodial are. It does appear that Lasix dosing has continued to be titrated up since the beginning of October. Originally patient was on 40 milligrams twice a day, however, then on 10/24. This was increased to 60 milligrams twice a day. Then on 11/01/17 this was increased to 80 milligrams twice a day. Will need to monitor patient's fluid status, electro-lytes and renal function carefully given this increased dose of diuretics. Will have nursing staff weight daily. Encourage patient to participate in unit activities and provide a safe environment Hospital services will continue to follow patient medically managed. Consent comorbidities. At time of discharge medical care will return to primary care provider in [place], Dr. Dat Szymanski
[2017-11-02] MEDS: HYDROCORTISONE 0.5% TOP SCH (20:57)
[2017-11-02] MEDS: QUETIAPINE 100 MG TABLET PO SCH (20:58)
[2017-11-02] MEDS: TAMSULOSIN 0.4 MG CAPSULE PO SCH (20:58)
[2017-11-02] MEDS ORDERED: FUROSEMIDE 80 MG TABLET PO SCH (21:00)
[2017-11-02] MEDS: POLYETHYL GLYCOL 3350 17gm PACKET PO SCH (21:02)
[2017-11-03] MEDS: FUROSEMIDE 80 MG TABLET PO SCH ×2 (08:55→15:04)
[2017-11-03] MEDS: AMOX/CLAV 875 MG/125 MG TABLET PO SCH ×2 (08:56→16:52)
[2017-11-03] MEDS: HYDROCORTISONE 0.5% TOP SCH ×2 (08:57→20:10)
[2017-11-03] MEDS: QUETIAPINE 50 MG TABLET PO SCH (08:58)
[2017-11-03] MEDS: POLYETHYL GLYCOL 3350 17gm PACKET PO SCH ×2 (08:58→20:11)
[2017-11-03] MEDS: LORazepam 1 MG TABLET PO SCH ×3 (08:58→20:10)
[2017-11-03] MEDS: ALBUTEROL/IPRATROPIUM 2.5mg-0.5mg/3ml NEB AEROSOL SCH ×4 (09:12→21:40)
[2017-11-03] MEDS: LACTOBACILLUS (15B cfu) CAPSULE PO SCH ×2 (11:23→16:52)
[2017-11-03] MEDS: CALCIUM CARBONATE Chewable 500mg TABLET PO SCH (11:24)
--- NOTE | 2017-11-03 13:36 | 24 Hour Neuropsychiatic Eval ---
Date of Admission: 11/02/17 11:55 Chief complaint: Increased agitation History of Present Illness: Patient is a 77-year-old , retired male who was admitted to [facility] on 11/02/17 due to increased agitation and combativeness, confusion for past several days at [facility] facility [facility] in [place], [place]. On interview, patient is pleasant with me though confused and not able to give me meaningful information about behaviors. He reports that his mood is mostly fine and denies feeling down, depressed, suicidal or homicidal. He answers positively to questions about AH and states that a couple of days ago , he had an incident in his home where he felt his 's presence. This seems more like confabulation than accurate reporting of history to me. He denies any HI and does not appear to be responding to internal stimuli. I have not confirmed history with family so is of limited reliability. Dementia: Memory Impairment, Other (increased agitation, confusion, combativeness) [facility] Patient Stated Medical History Angina Yes Congestive Heart Failure Yes Coronary Artery Disease Yes Hypertension Yes Myocardial Infarction Yes Chronic Obstructive Pulmonary Yes Disease (COPD) Other GI Yes: POSTCHOLECYSTECTOMY SYNDROME Other Yes: HX BLADDER CANCER Depression Yes Medical History Updates: Metabolic encephalopathy. HL. AMI. PVD. Nicotine dependence. CHF. Bladder malignancy. MDD. CAD. Postcholecystectomy syndrome. HTN. COPD Surgical History: Tonsillectomy. Cholecystectomy. Cardiac bypass 3. Bladder procedures Family History: Patient states his grandmother had dementia but that has not been confirmed. - Social History Smoking status: Current every day smoker Substance use type: does not use Alcohol intake frequency: does not drink Housing: other ([facility] in [place], [place]) Current occupational status: retired ([employer]) Social history: Strengths: has placement, able to communicate well verbally Review of Systems All systems: reviewed and no additional remarkable complaints except as stated - Respiratory Respiratory: Present: dyspnea ("always" per patient - he finds breathing treatments helpful) - Gastrointestinal Gastrointestinal: Present: abdominal pain (patient believes may be due to constipation) - Neurological Neurological: Present: memory loss - Psychiatric Psychiatric: Present: behavioral changes. Absent: depression, homicidal ideation, suicidal ideation Mental Status Exam Vitals: Last Vital Signs Temp 98.1 F 11/03/17 08:00 Pulse 70 11/03/17 08:00 Resp 14 11/03/17 11:37 BP 125/52 11/03/17 08:00 Pulse Ox 96 11/03/17 11:37 Height: 1.88 m Weight: 98.5 kg - Mental Status Exam Muscle Strength/Tone: Normal Dressing: Casual Grooming: Fair Attitude: Cooperative Motor Activity: Normal Eye Contact: Fair Speech: Normal Volume: Normal Rhythm: Appropriate Rhythm Sensory: Alert Orientation: Disoriented to time, Disoriented to place, Disoriented to situation , Oriented to place Mood: Neutral Affect: Relaxed (during interview, labile at care facility) Rate of Thoughts: Delayed Thought Organization: Confused Associations: Illogical (at times) Abstract Reasoning: Poor abstract reasoning Thought Content: Other (No abnormal thought content elicited other than confusion, out of context to situation) Current Hallucinations: Other (Unclear, patient endorses recent AVH but I do not believe this is reliable hsitory) Language: Other (Difficulty with word-finding) Fund of Knowledge: Poor fund of knowledge Memory: Poor-recent Suicidal Ideation: Denies Homicidal Ideation: Denies Insight: Impaired Judgement: Impaired Impulse Control: Poor - Laboratory Result Diagrams: 11/02/17 08:03 11/03/17 07:31 Laboratory Results - last 24 hr 11/03/17 07:31 Turbidity < 20 Sodium 141 Potassium 3.6 Chloride 101 Carbon Dioxide 32 H Anion Gap 8 BUN 14.0 Creatinine 1.0 GFR Calculation 72 BUN/Creatinine Ratio 14 Glucose 87 Hemoglobin A1c 5.6 Calculated Osmolality 271 Calcium 9.3 Icterus Index < 2 Triglycerides 89 Cholesterol 98 L LDL Cholesterol, Calc 53.2 L VLDL Cholesterol 17.8 HDL Cholesterol 27 L Cholesterol/HDL Ratio 3.6 Specimen Hemolysis < 15 Assessment and Plan (1) Major neurocognitive disorder Problem details: etiology unknown at this point, moderate, with behavioral disturbance Has many risk factors for vascular dementia. Current visit: Yes Status: Acute (2) Peripheral edema Current visit: Yes Status: Acute (3) COPD (chronic obstructive pulmonary disease) Current visit: Yes Status: Acute (4) HTN (hypertension) Current visit: Yes Status: Acute (5) CHF (congestive heart failure) Current visit: Yes Status: Acute (6) CAD (coronary artery disease) Current visit: Yes Status: Acute (7) HLD (hyperlipidemia) Current visit: Yes Status: Acute (8) PVD (peripheral vascular disease) Current visit: Yes Status: Acute Agree with admission to [facility] for psychiatric evaluation and stabilization. Standard labs upon admission: CBC, CMP, TSH, UA, Vitamin B12 and folate levels Lorazepam decreased to 1 TID on admission; plan to taper further as may be disinhibiting patient Obtain further collateral from family/DPOA Monitor mood, behavior and response to treatment.
[2017-11-03] MEDS ORDERED: FUROSEMIDE 80 MG TABLET PO SCH (16:30)
[2017-11-03] MEDS: QUETIAPINE 100 MG TABLET PO SCH (20:10)
[2017-11-03] MEDS: TAMSULOSIN 0.4 MG CAPSULE PO SCH (20:11)
[2017-11-04] MEDS: FUROSEMIDE 80 MG TABLET PO SCH ×2 (08:55→15:24)
[2017-11-04] MEDS: LACTOBACILLUS (15B cfu) CAPSULE PO SCH ×2 (08:55→17:12)
[2017-11-04] MEDS: AMOX/CLAV 875 MG/125 MG TABLET PO SCH (08:55)
[2017-11-04] MEDS: CALCIUM CARBONATE Chewable 500mg TABLET PO SCH (08:56)
[2017-11-04] MEDS: LORazepam 1 MG TABLET PO SCH ×3 (08:56→19:43)
[2017-11-04] MEDS: HYDROCORTISONE 0.5% TOP SCH ×3 (08:56→22:15)
[2017-11-04] MEDS: QUETIAPINE 50 MG TABLET PO SCH (08:57)
[2017-11-04] MEDS: POLYETHYL GLYCOL 3350 17gm PACKET PO SCH ×2 (08:57→22:15)
[2017-11-04] MEDS: ALBUTEROL/IPRATROPIUM 2.5mg-0.5mg/3ml NEB AEROSOL SCH ×3 (09:22→21:00)
--- NOTE | 2017-11-04 12:27 | Progress Note ---
- Date 11/04/17 Subjective: Alfonso is seen this morning while sleeping in his room. He awakens briefly with soft touch and voice stimuli but quickly falls back to sleep when not talking. He denies any complaints. No chest pain or shortness of breath. Wound culture report became available today from [place] which revealed rare amount of staph epidermidis with some penicillin resistance. He was placed on Augmentin and doxycycline for concerns of cellulitis on 10/31/17. He remains afebrile. Vital signs reviewed and indicated hypoxia at 89% on room air while sleeping. Nursing instructed to place oxygen and recheck pulse ox periodically. CXR on revealed no obvious pneumonia or congestive failure. No respiratory distress noted on exam. Appetite is stable and bowels are moving. Cooperative with recent cares. Objective Vital signs: Temperature 96.5 F L 11/04/17 08:00 Pulse Rate 78 11/04/17 08:00 Respiratory Rate 16 11/04/17 08:00 Blood Pressure 92/49 11/04/17 08:00 Pulse Oximetry 89 L 11/04/17 08:00 Height/Weight/BMI: Height 6 ft 2 in Weight 217 lb 2.485 oz Body Mass Index 27.8 Comments: sleeping, awakens easily. - Constitutional Present: no acute distress, well nourished, well developed, cooperative - Routine HEENT Exam Head: Present: normocephalic, atraumatic Eye: Present: PERRL. Absent: conjunctival icterus ENT: Present: mucous membranes dry - Routine Respiratory Exam Comments: course breath sounds bilaterally; patient snoring; no distress. - Routine Cardiovascular Exam Present: irregularly irregular - Routine Abdominal Exam Present: soft, normoactive bowel sounds, non distended, non tender - Routine Extremities Exam Present: edema (2-3+ on right, 1+ left.), full ROM Comments: diminished pedal and tibial pulses bilaterally. 2+ radial pulses bilaterally. - Routine Back/Spine/Pelvis Exam Back/Spine: Present: full ROM. Absent: vertebral tenderness - Routine Musculoskeletal Exam Musculoskeletal: Present: moving extremities well - Routine Skin Exam Present: dry, warm. Absent: jaundice Comments: extensive erythema with warmth and 2-3+ edema noted to right lower extremities extending from scabbed wound to anterior padilla; no discharge from wound; mild erythema with 1+ edema noted to left lower extremities. - Routine Neurological Exam Present: moving all extremities, normal speech sleeping; awakens easily and orientated to self. - Routine Lymphatic Exam Lymphatic: Absent: lymphedema - Routine Psychiatric Exam Present: cooperative Results - Labs CBC & Chem 7: 11/02/17 08:03 11/03/17 07:31 Assessment and Plan (1) Abnormal behavior Current visit: Yes Status: Acute (2) PVD (peripheral vascular disease) Current visit: Yes Status: Acute Assessment and Plan: Impression Increased behaviors Acute on chronic peripheral edema- recent increased Lasix dose Chronic PVD HTN CHF COPD with o2 use PRN and Night CAD Hyperlipidemia Depression Plan - 11/04/17 Nursing reports that patient has been cooperative with [facility]. Continue psychiatric care per Dr. Sharpe and team. Continue to provide safe and supportive environment. Prior wound culture from right leg collected on 10/31/17 prior to admission revealed rare staph epidermidis which appears penicillin resistant. He was started on Augmentin and doxycycline prior to admission. Will discontinue Augmentin given resistance. Chronicity of erythema is unclear. Will continue doxycycline and consult Dr. Hazel for further evaluation and treatment recommendations given right anterior scabbed wound without discharge. Pending wound care evaluation and recommendations. Pedal pulses diminished bilaterally. Would consider US to R/O DVT. Will discuss with Dr. Douglas. Given edema and recently documented hypoxia at 89% on room air while sleeping, will obtain orthostatic vital signs to better evaluate fluid status. Monitor daily weight closely for fluid retention. Renal function stable. CO2 continues to trend up. May consider Bumex for diuresis if indicated. CXR on showed no obvious pneumonia or congestive failure. Patient remains afebrile and WBC stable on 11/02. Oxygen as indicated to maintain SAO2 >90%, weaning as able. Consider over night oximetry for further evaluation of nocturnal oxygen demands. Resuscitation Status: Do Not Resuscitate - Time spent with patient Time with patient PN: 35 minutes - Physician Narrative Physician: Amirah Douglas MD Narrative: Date: 11/04/17 Time: 1221 Hospital Course Summary Disclaimer: The visit summary below is not to be considered part of the above Progress Note. Hospital Course: Impression Increased behaviors Acute on chronic peripheral edema- recent increased Lasix dose Chronic PVD HTN CHF COPD with o2 use PRN and Night CAD Hyperlipidemia Depression Plan Agree with admission to [facility] under the care of Dr Sharpe for evaluation of increase behaviors Medically he is noted to have erythema and mild edema to lower ext. It is unclear is baseline status of lower ext as he is not from locally. In reviewing old records it does appear that he chronically has lower extremity edema, accompanied with peripheral vascular disease. He chronically utilizes Sachin wraps to bilateral lower extremities. Previously from 10/19-10/29/17 patient was on Cefdinir for treatment of questionable lower extremity cellulitis. Then yesterday on 11/01/17 he was placed on Augmentin and doxycycline for ongoing tx of questionable cellulitis. Although this appears to be more inflammatory- we will continue antibiotics at this time and will add topical steroid cream to use BID to bilateral lower ext. Continue to follow carefully, Consult to wound team to make recommendations for wound care/ wraps. Upon reviewing retirement are. It does appear that Lasix dosing has continued to be titrated up since the beginning of October. Originally patient was on 40 milligrams twice a day, however, then on 10/24. This was increased to 60 milligrams twice a day. Then on 11/01/17 this was increased to 80 milligrams twice a day. Will need to monitor patient's fluid status, electro-lytes and renal function carefully given this increased dose of diuretics. Will have nursing staff weight daily. Encourage patient to participate in unit activities and provide a safe environment Hospital services will continue to follow patient medically managed. Consent comorbidities. At time of discharge medical care will return to primary care provider in [place], [place], Dr. Dat Szymanski Plan - 11/04/17 Nursing reports that patient has been cooperative with cares. Continue psychiatric care per Dr. Sharpe and team. Continue to provide safe and supportive environment. Prior wound culture from right leg collected on 10/31/17 prior to admission revealed rare staph epidermidis which appears penicillin resistant. He was started on Augmentin and doxycycline prior to admission. Will discontinue Augmentin given resistance. Chronicity of erythema is unclear. Will continue doxycycline and consult Dr. Hazel for further evaluation and treatment recommendations given right anterior scabbed wound without discharge. Pending wound care evaluation and recommendations. Pedal pulses diminished bilaterally. Would consider US to R/O DVT. Will discuss with Dr. Douglas. Given edema and recently documented hypoxia at 89% on room air while sleeping, will obtain orthostatic vital signs to better evaluate fluid status. Monitor daily weight closely for fluid retention. Renal function stable. CO2 continues to trend up. May consider Bumex for diuresis if indicated. CXR on showed no obvious pneumonia or congestive failure. Patient remains afebrile and WBC stable on 11/02. Oxygen as indicated to maintain SAO2 >90%, weaning as able. Consider over night oximetry for further evaluation of nocturnal oxygen demands.
--- NOTE | 2017-11-04 14:23 | Neuropsych Progress Note ---
[facility] Subjective Date: 11/04/17 - Sujective/Severity of Illness Medications: Albuterol/Ipratropium (Duoneb) 3 ml AEROSOL TID [facility] Last Admin: 11/04/17 09:22 Dose: 3 ml Calcium Carbonate (Tums) 1,000 mg PO DAILY [facility] Last Admin: 11/04/17 08:56 Dose: 1,000 mg Calcium Carbonate (Tums) 1,000 mg PO Q4H PRN PRN Reason: Epigastric distress Doxycycline Hyclate (Vibramycin) 100 mg PO BIDWM [facility] Last Admin: 11/04/17 08:55 Dose: 100 mg Furosemide (Lasix) 80 mg PO 0700,1400 [facility] Last Admin: 11/04/17 08:55 Dose: 80 mg Haloperidol (Haldol) 0.5 mg PO Q6H PRN PRN Reason: Extreme agitation Haloperidol Lactate (Haldol) 0.5 mg IM Q6H PRN PRN Reason: Extreme agitation Hydrocortisone (Cortisone Cream) 1 applic TOP BID [facility] Last Admin: 11/04/17 08:56 Dose: 1 applic Lactobacillus Acidophilus (Culturelle) 2 cap PO BIDWM [facility] Last Admin: 11/04/17 08:55 Dose: 2 cap Lorazepam (Ativan) 0.5 mg PO Q6H PRN PRN Reason: Extreme agitation Lorazepam (Ativan Inj) 0.5 mg IM Q6H PRN PRN Reason: Extreme agitation Lorazepam (Ativan) 1 mg PO TID [facility] Last Admin: 11/04/17 08:56 Dose: 1 mg Morphine Sulfate (Ms Contin) 15 mg PO BID [facility] Last Admin: 11/04/17 08:56 Dose: 15 mg Oseltamivir Phosphate (Tamiflu) 75 mg PO DAILY [facility] Stop: 11/07/17 09:01 Last Admin: 11/04/17 08:57 Dose: 75 mg Polyethylene Glycol (Miralax) 17 gm PO BID [facility] Last Admin: 11/04/17 08:57 Dose: 17 gm Potassium Chloride (K-Dur) 20 meq PO WB [facility] Last Admin: 11/04/17 08:55 Dose: 20 meq Quetiapine Fumarate (Seroquel) 50 mg PO DAILY [facility] Last Admin: 11/04/17 08:57 Dose: 50 mg Quetiapine Fumarate (Seroquel) 100 mg PO HS [facility] Last Admin: 11/03/17 20:10 Dose: 100 mg Simethicone (Phazyme) 125 mg PO Q6H PRN PRN Reason: Indigestion Sodium Chloride (Iv Flush) 10 - 80 ml IVF PRN PRN PRN Reason: Flushing Last Admin: 11/02/17 09:15 Dose: 30 ml Tamsulosin HCl (Flomax) 0.4 mg PO HS [facility] Last Admin: 11/03/17 20:11 Dose: 0.4 mg Subjective: Patient seen and chart reviewed. Case discussed with treatment team. Patient is sleeping at time of rounds. MSE below based on my last interaction with him. At times, patient can be polite but tense. Nursing staff report that he becomes more agitated and threatening in the evening and overnight. He has threatened to become physically aggressive but has not done so. He blocked the exit doors for ~45 min. so that no one could leave last evening. He is quite agitated by his bed alarm. Patient has been adherent with medications. Patient slept 7 hours overnight. VSS. Patient is eating well. Psychotropic PRNs required in the past 24 hours: none. Start Time: 09:20 Stop Time: 09:40 Mental Status Exam Vitals: Last Vital Signs Temp 96.5 F L 11/04/17 08:00 Pulse 78 11/04/17 08:00 Resp 16 11/04/17 08:00 BP 92/49 11/04/17 08:00 Pulse Ox 89 L 11/04/17 08:00 Height: 1.88 m Weight: 98 kg - Mental Status Exam Muscle Strength/Tone: Normal Dressing: Casual Grooming: Fair Attitude: Cooperative (at times), Tense Motor Activity: Normal Eye Contact: Fair Speech: Normal Volume: Normal Rhythm: Appropriate Rhythm Orientation: Disoriented to time, Disoriented to place, Disoriented to situation , Oriented to place Mood: Neutral (labile affect, worse in evenings) Rate of Thoughts: Delayed Thought Organization: Confused 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) Abstract Reasoning: Poor abstract reasoning Thought Content: Other (No abnormal thought content elicited other than confusion, out of context to situation) Current Hallucinations: Other (Unclear, patient endorses recent AVH but I do not believe this is reliable hsitory) Language: Other (Difficulty with word-finding) Fund of Knowledge: Poor fund of knowledge Memory: Poor-recent Suicidal Ideation: Denies Homicidal Ideation: Denies Insight: Impaired Judgement: Impaired Impulse Control: Poor - Laboratory Result Diagrams: 11/02/17 08:03 11/03/17 07:31 Assessment and Plan (1) Major neurocognitive disorder Problem details: etiology unknown at this point, moderate, with behavioral disturbance Has many risk factors for vascular dementia. Current visit: Yes Status: Acute (2) Peripheral edema Current visit: Yes Status: Acute (3) COPD (chronic obstructive pulmonary disease) Current visit: Yes Status: Acute (4) HTN (hypertension) Current visit: Yes Status: Acute (5) CHF (congestive heart failure) Current visit: Yes Status: Acute (6) CAD (coronary artery disease) Current visit: Yes Status: Acute (7) HLD (hyperlipidemia) Current visit: Yes Status: Acute (8) PVD (peripheral vascular disease) Current visit: Yes Status: Acute Increased Seroquel to 50mg BID at 0900 and 1600, 100mg at HS. Decreased lorazepam (from 1mg QID on admission) to 0.5mg PO BID at 0900 and 1600, 1mg at HS. Would like to taper Ativan further as well as morphine. Hospital Course Summary Disclaimer: The visit summary below is not to be considered part of the above Progress Note. Hospital Course: Impression Increased behaviors Acute on chronic peripheral edema- recent increased Lasix dose Chronic PVD HTN CHF COPD with o2 use PRN and Night CAD Hyperlipidemia Depression Plan Agree with admission to [facility] under the care of Dr Sharpe for evaluation of increase behaviors Medically he is noted to have erythema and mild edema to lower ext. It is unclear is baseline status of lower ext as he is not from locally. In reviewing old records it does appear that he chronically has lower extremity edema, accompanied with peripheral vascular disease. He chronically utilizes Sach[place] wraps to bilateral lower extremities. Previously from 10/19-10/29/17 patient was on Cefdinir for treatment of questionable lower extremity cellulitis. Then yesterday on 11/01/17 he was placed on Augmentin and doxycycline for ongoing tx of questionable cellulitis. Although this appears to be more inflammatory- we will continue antibiotics at this time and will add topical steroid cream to use BID to bilateral lower ext. Continue to follow carefully, Consult to wound team to make recommendations for wound care/ wraps. Upon reviewing [facility] are. It does appear that Lasix dosing has continued to be titrated up since the beginning of October. Originally patient was on 40 milligrams twice a day, however, then on 10/24. This was increased to 60 milligrams twice a day. Then on 11/01/17 this was increased to 80 milligrams twice a day. Will need to monitor patient's fluid status, electro-lytes and renal function carefully given this increased dose of diuretics. Will have nursing staff weight daily. Encourage patient to participate in unit activities and provide a safe environment Hospital services will continue to follow patient medically managed. Consent comorbidities. At time of discharge medical care will return to primary care provider in [place], [place], Dr. Dat Szymanski Plan - 11/04/17 Nursing reports that patient has been cooperative with cares. Continue psychiatric care per Dr. Sharpe and team. Continue to provide safe and supportive environment. Prior wound culture from right leg collected on 10/31/17 prior to admission revealed rare staph epidermidis which appears penicillin resistant. He was started on Augmentin and doxycycline prior to admission. Will discontinue Augmentin given resistance. Chronicity of erythema is unclear. Will continue doxycycline and consult Dr. Hazel for further evaluation and treatment recommendations given right anterior scabbed wound without discharge. Pending wound care evaluation and recommendations. Pedal pulses diminished bilaterally. Would consider US to R/O DVT. Will discuss with Dr. Douglas. Given edema and recently documented hypoxia at 89% on room air while sleeping, will obtain orthostatic vital signs to better evaluate fluid status. Monitor daily weight closely for fluid retention. Renal function stable. CO2 continues to trend up. May consider Bumex for diuresis if indicated. CXR on showed no obvious pneumonia or congestive failure. Patient remains afebrile and WBC stable on 11/02. Oxygen as indicated to maintain SAO2 >90%, weaning as able. Consider over night oximetry for further evaluation of nocturnal oxygen demands. Psych 11/04/17: Increased Seroquel to 50mg BID at 0900 and 1600, 100mg at HS. Decreased lorazepam (from 1mg QID on admission) to 0.5mg PO BID at 0900 and 1600 , 1mg at HS. Would like to taper Ativan further as well as morphine.
--- NOTE | 2017-11-04 15:00 | Wound Care Progress Note ---
Wound Center Progress Note: In to see pt at the [facility] unit. Pt was sitting in the [facility] area and was very cooperative and walked to his room for this RN to assess legs. Pt has generalized redness to right leg, large flakey areas of skin. At this time no open areas of concern, A & D applied and then covered with pt's socks. Asked RN for an order to moisturize with A & D daily. Pt very pleasant and cooperative.
[2017-11-04] MEDS: TAMSULOSIN 0.4 MG CAPSULE PO SCH ×2 (19:44→22:16)
[2017-11-04] MEDS: QUETIAPINE 100 MG TABLET PO SCH ×2 (19:44→22:15)
[2017-11-05] MEDS: ALBUTEROL/IPRATROPIUM 2.5mg-0.5mg/3ml NEB AEROSOL SCH ×3 (09:20→21:11)
[2017-11-05] MEDS: LACTOBACILLUS (15B cfu) CAPSULE PO SCH ×2 (09:46→17:28)
[2017-11-05] MEDS: FUROSEMIDE 80 MG TABLET PO SCH ×2 (09:46→15:06)
[2017-11-05] MEDS: HYDROCORTISONE 0.5% TOP SCH ×2 (09:46→20:14)
[2017-11-05] MEDS: LORazepam 0.5 MG TABLET PO SCH ×2 (09:47→17:28)
[2017-11-05] MEDS: POLYETHYL GLYCOL 3350 17gm PACKET PO SCH ×2 (09:48→20:15)
[2017-11-05] MEDS: QUETIAPINE 50 MG TABLET PO SCH ×2 (09:48→17:28)
[2017-11-05] MEDS: CALCIUM CARBONATE Chewable 500mg TABLET PO SCH (11:41)
--- NOTE | 2017-11-05 12:02 | Neuropsych Progress Note ---
[facility] Subjective Date: 11/05/17 - Sujective/Severity of Illness Medications: Albuterol/Ipratropium (Duoneb) 3 ml AEROSOL TID [facility] Last Admin: 11/05/17 09:20 Dose: 3 ml Calcium Carbonate (Tums) 1,000 mg PO DAILY [facility] Last Admin: 11/05/17 11:41 Dose: Not Given Calcium Carbonate (Tums) 1,000 mg PO Q4H PRN PRN Reason: Epigastric distress Doxycycline Hyclate (Vibramycin) 100 mg PO BIDWM [facility] Last Admin: 11/05/17 09:46 Dose: 100 mg Furosemide (Lasix) 80 mg PO 0700,1400 [facility] Last Admin: 11/05/17 09:46 Dose: 80 mg Haloperidol (Haldol) 0.5 mg PO Q6H PRN PRN Reason: Extreme agitation Haloperidol Lactate (Haldol) 0.5 mg IM Q6H PRN PRN Reason: Extreme agitation Hydrocortisone (Cortisone Cream) 1 applic TOP BID [facility] Last Admin: 11/05/17 09:46 Dose: 1 applic Lactobacillus Acidophilus (Culturelle) 2 cap PO BIDWM [facility] Last Admin: 11/05/17 09:46 Dose: 2 cap Lorazepam (Ativan) 0.5 mg PO Q6H PRN PRN Reason: Extreme agitation Lorazepam (Ativan Inj) 0.5 mg IM Q6H PRN PRN Reason: Extreme agitation Lorazepam (Ativan) 1 mg PO HS [facility] Lorazepam (Ativan) 0.5 mg PO 09,16 [facility] Last Admin: 11/05/17 09:47 Dose: 0.5 mg Morphine Sulfate (Ms Contin) 15 mg PO BID [facility] Last Admin: 11/05/17 09:47 Dose: 15 mg Oseltamivir Phosphate (Tamiflu) 75 mg PO DAILY [facility] Stop: 11/07/17 09:01 Last Admin: 11/05/17 09:47 Dose: 75 mg Polyethylene Glycol (Miralax) 17 gm PO BID [facility] Last Admin: 11/05/17 09:48 Dose: 17 gm Potassium Chloride (K-Dur) 20 meq PO WB [facility] Last Admin: 11/05/17 09:46 Dose: 20 meq Quetiapine Fumarate (Seroquel) 100 mg PO HS [facility] Last Admin: 11/04/17 22:15 Dose: Not Given Quetiapine Fumarate (Seroquel) 50 mg PO 0916 [facility] Last Admin: 11/05/17 09:48 Dose: 50 mg Simethicone (Phazyme) 125 mg PO Q6H PRN PRN Reason: Indigestion Sodium Chloride (Iv Flush) 10 - 80 ml IVF PRN PRN PRN Reason: Flushing Last Admin: 11/02/17 09:15 Dose: 30 ml Tamsulosin HCl (Flomax) 0.4 mg PO HS [facility] Last Admin: 11/04/17 22:16 Dose: Not Given Subjective: Patient seen and chart reviewed. Nursing reports pt is doing well. Sleeping well and has a good appetite. No behaviors noted. On face to face the pt is pleasant and cooperative. He reports his mood is fairly stable. Denies pain. Tolerating meds. Start Time: 10:15 Stop Time: 10:30 Mental Status Exam Vitals: Last Vital Signs Temp 98.2 F 11/05/17 08:00 Pulse 61 11/05/17 08:00 Resp 16 11/05/17 09:20 BP 134/67 11/05/17 08:00 Pulse Ox 92 11/05/17 09:20 Height: 1.88 m Weight: 98 kg - Mental Status Exam Muscle Strength/Tone: Normal Dressing: Casual Grooming: Fair Attitude: Cooperative (at times), Tense Motor Activity: Normal Eye Contact: Fair Speech: Normal Volume: Normal Rhythm: Appropriate Rhythm Orientation: Disoriented to time, Disoriented to place, Disoriented to situation , Oriented to place Mood: Neutral (labile affect, worse in evenings) Rate of Thoughts: Delayed Thought Organization: Confused 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) Abstract Reasoning: Poor abstract reasoning Thought Content: Other (No abnormal thought content elicited other than confusion, out of context to situation) Current Hallucinations: Other (Unclear, patient endorses recent AVH but I do not believe this is reliable hsitory) Language: Other (Difficulty with word-finding) Fund of Knowledge: Poor fund of knowledge Memory: Poor-recent Suicidal Ideation: Denies Homicidal Ideation: Denies Insight: Impaired Judgement: Impaired Impulse Control: Poor - Laboratory Result Diagrams: 11/02/17 08:03 11/05/17 06:38 Laboratory Results - last 24 hr 11/05/17 06:38 Turbidity < 20 Sodium 140 Potassium 3.5 L Chloride 100 Carbon Dioxide 32 H Anion Gap 8 BUN 15.0 Creatinine 1.0 GFR Calculation 72 BUN/Creatinine Ratio 15 Glucose 91 Calculated Osmolality 270 Calcium 9.0 Icterus Index < 2 Specimen Hemolysis < 15 Assessment and Plan (1) PVD (peripheral vascular disease) Current visit: Yes Status: Acute (2) Major neurocognitive disorder Problem details: etiology unknown at this point, moderate, with behavioral disturbance Has many risk factors for vascular dementia. Current visit: Yes Status: Acute (3) Peripheral edema Current visit: Yes Status: Acute (4) COPD (chronic obstructive pulmonary disease) Current visit: Yes Status: Acute (5) HTN (hypertension) Current visit: Yes Status: Acute (6) CHF (congestive heart failure) Current visit: Yes Status: Acute (7) CAD (coronary artery disease) Current visit: Yes Status: Acute (8) HLD (hyperlipidemia) Current visit: Yes Status: Acute Hospital Course Summary Disclaimer: The visit summary below is not to be considered part of the above Progress Note. Hospital Course: Impression Increased behaviors Acute on chronic peripheral edema- recent increased Lasix dose Chronic PVD HTN CHF COPD with o2 use PRN and Night CAD Hyperlipidemia Depression Plan Agree with admission to [facility] under the care of Dr Sharpe for evaluation of increase behaviors Medically he is noted to have erythema and mild edema to lower ext. It is unclear is baseline status of lower ext as he is not from locally. In reviewing old records it does appear that he chronically has lower extremity edema, accompanied with peripheral vascular disease. He chronically utilizes Sachin wraps to bilateral lower extremities. Previously from 10/19-10/29/17 patient was on Cefdinir for treatment of questionable lower extremity cellulitis. Then yesterday on 11/01/17 he was placed on Augmentin and doxycycline for ongoing tx of questionable cellulitis. Although this appears to be more inflammatory- we will continue antibiotics at this time and will add topical steroid cream to use BID to bilateral lower ext. Continue to follow carefully, Consult to wound team to make recommendations for wound care/ wraps. Upon reviewing senior care are. It does appear that Lasix dosing has continued to be titrated up since the beginning of October. Originally patient was on 40 milligrams twice a day, however, then on 10/24. This was increased to 60 milligrams twice a day. Then on 11/01/17 this was increased to 80 milligrams twice a day. Will need to monitor patient's fluid status, electro-lytes and renal function carefully given this increased dose of diuretics. Will have nursing staff weight daily. Encourage patient to participate in unit activities and provide a safe environment Hospital services will continue to follow patient medically managed. Consent comorbidities. At time of discharge medical care will return to primary care provider in [place], [place], Dr. Dat Szymanski Plan - 11/04/17 Nursing reports that patient has been cooperative with cares. Continue psychiatric care per Dr. Sharpe and team. Continue to provide safe and supportive environment. Prior wound culture from right leg collected on 10/31/17 prior to admission revealed rare staph epidermidis which appears penicillin resistant. He was started on Augmentin and doxycycline prior to admission. Will discontinue Augmentin given resistance. Chronicity of erythema is unclear. Will continue doxycycline and consult Dr. Hazel for further evaluation and treatment recommendations given right anterior scabbed wound without discharge. Pending wound care evaluation and recommendations. Pedal pulses diminished bilaterally. Would consider US to R/O DVT. Will discuss with Dr. oDuglas. Given edema and recently documented hypoxia at 89% on room air while sleeping, will obtain orthostatic vital signs to better evaluate fluid status. Monitor daily weight closely for fluid retention. Renal function stable. CO2 continues to trend up. May consider Bumex for diuresis if indicated. CXR on showed no obvious pneumonia or congestive failure. Patient remains afebrile and WBC stable on 11/02. Oxygen as indicated to maintain SAO2 >90%, weaning as able. Consider over night oximetry for further evaluation of nocturnal oxygen demands. Psych 11/04/17: Increased Seroquel to 50mg BID at 0900 and 1600, 100mg at HS. Decreased lorazepam (from 1mg QID on admission) to 0.5mg PO BID at 0900 and 1600 , 1mg at HS. Would like to taper Ativan further as well as morphine. 11/05/17 PT tolerating decrease in Ativan. No behaviors. Continue current care
[2017-11-05] MEDS: LORazepam 1 MG TABLET PO SCH (20:14)
[2017-11-05] MEDS: QUETIAPINE 100 MG TABLET PO SCH (20:15)
[2017-11-05] MEDS: TAMSULOSIN 0.4 MG CAPSULE PO SCH (20:16)
[2017-11-06] MEDS: QUETIAPINE 50 MG TABLET PO SCH ×2 (08:43→15:52)
[2017-11-06] MEDS: LORazepam 0.5 MG TABLET PO SCH ×2 (08:43→15:52)
[2017-11-06] MEDS: FUROSEMIDE 80 MG TABLET PO SCH ×2 (08:43→14:29)
[2017-11-06] MEDS: LACTOBACILLUS (15B cfu) CAPSULE PO SCH ×2 (08:44→17:23)
[2017-11-06] MEDS: CALCIUM CARBONATE Chewable 500mg TABLET PO SCH (08:44)
[2017-11-06] MEDS: POLYETHYL GLYCOL 3350 17gm PACKET PO SCH ×3 (08:45→20:40)
[2017-11-06] MEDS: HYDROCORTISONE 0.5% TOP SCH ×2 (08:45→20:40)
[2017-11-06] MEDS: ALBUTEROL/IPRATROPIUM 2.5mg-0.5mg/3ml NEB AEROSOL SCH ×3 (09:56→20:50)
--- NOTE | 2017-11-06 10:48 | Neuropsych Progress Note ---
[facility] Subjective Date: 11/06/17 - Sujective/Severity of Illness Medications: Albuterol/Ipratropium (Duoneb) 3 ml AEROSOL TID [facility] Last Admin: 11/06/17 09:56 Dose: 3 ml Calcium Carbonate (Tums) 1,000 mg PO DAILY [facility] Last Admin: 11/06/17 08:44 Dose: 1,000 mg Calcium Carbonate (Tums) 1,000 mg PO Q4H PRN PRN Reason: Epigastric distress Doxycycline Hyclate (Vibramycin) 100 mg PO BIDWM [facility] Last Admin: 11/06/17 08:43 Dose: 100 mg Furosemide (Lasix) 80 mg PO 0700,1400 [facility] Last Admin: 11/06/17 08:43 Dose: 80 mg Haloperidol (Haldol) 0.5 mg PO Q6H PRN PRN Reason: Extreme agitation Haloperidol Lactate (Haldol) 0.5 mg IM Q6H PRN PRN Reason: Extreme agitation Hydrocortisone (Cortisone Cream) 1 applic TOP BID [facility] Last Admin: 11/06/17 08:45 Dose: 1 applic Lactobacillus Acidophilus (Culturelle) 2 cap PO BIDWM [facility] Last Admin: 11/06/17 08:44 Dose: 2 cap Lorazepam (Ativan) 0.5 mg PO Q6H PRN PRN Reason: Extreme agitation Lorazepam (Ativan Inj) 0.5 mg IM Q6H PRN PRN Reason: Extreme agitation Lorazepam (Ativan) 1 mg PO [facility] Last Admin: 11/05/17 20:14 Dose: 1 mg Lorazepam (Ativan) 0.5 mg PO 09,16 [facility] Last Admin: 11/06/17 08:43 Dose: 0.5 mg Morphine Sulfate (Ms Contin) 15 mg PO BID [facility] Last Admin: 11/06/17 08:43 Dose: 15 mg Oseltamivir Phosphate (Tamiflu) 75 mg PO DAILY [facility] Stop: 11/07/17 09:01 Last Admin: 11/06/17 08:45 Dose: 75 mg Polyethylene Glycol (Miralax) 17 gm PO BID [facility] Last Admin: 11/06/17 08:45 Dose: 17 gm Potassium Chloride (K-Dur) 20 meq PO WB [facility] Last Admin: 11/06/17 08:43 Dose: 20 meq Quetiapine Fumarate (Seroquel) 100 mg PO [facility] Last Admin: 11/05/17 20:15 Dose: 100 mg Quetiapine Fumarate (Seroquel) 50 mg PO 09,16 [facility] Last Admin: 11/06/17 08:43 Dose: 50 mg Simethicone (Phazyme) 125 mg PO Q6H PRN PRN Reason: Indigestion Sodium Chloride (Iv Flush) 10 - 80 ml IVF PRN PRN PRN Reason: Flushing Last Admin: 11/02/17 09:15 Dose: 30 ml Tamsulosin HCl (Flomax) 0.4 mg PO [facility] Last Admin: 11/05/17 20:16 Dose: 0.4 mg Subjective: Patient seen and chart reviewed. Nursing reports pt is doing well. Sleeping well and having a good appetite. Pt can be irritable at times and some what negative. On face to face the pt states he is doing well. He reports his mood is stable. He states he gets upset when people what things done "right now". He denies S/I or psychosis. Tolerating meds Start Time: 10:30 Stop Time: 10:45 Mental Status Exam Vitals: Last Vital Signs Temp 97.0 F 11/06/17 08:00 Pulse 69 11/06/17 08:00 Resp 18 11/06/17 09:56 BP 103/54 11/06/17 08:00 Pulse Ox 92 11/06/17 09:56 Height: 1.88 m Weight: 98 kg - Mental Status Exam Muscle Strength/Tone: Normal Dressing: Casual Grooming: Fair Attitude: Cooperative (at times), Tense Motor Activity: Normal Eye Contact: Fair Speech: Normal Volume: Normal Rhythm: Appropriate Rhythm Orientation: Disoriented to time, Disoriented to place, Disoriented to situation , Oriented to place Mood: Neutral (labile affect, worse in evenings) Rate of Thoughts: Delayed Thought Organization: Confused 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) Abstract Reasoning: Poor abstract reasoning Thought Content: Other (No abnormal thought content elicited other than confusion, out of context to situation) Current Hallucinations: Other (Unclear, patient endorses recent AVH but I do not believe this is reliable hsitory) Language: Other (Difficulty with word-finding) Fund of Knowledge: Poor fund of knowledge Memory: Poor-recent Suicidal Ideation: Denies Homicidal Ideation: Denies Insight: Impaired Judgement: Impaired Impulse Control: Poor - Laboratory Result Diagrams: 11/02/17 08:03 11/05/17 06:38 Assessment and Plan (1) PVD (peripheral vascular disease) Current visit: Yes Status: Acute (2) Major neurocognitive disorder Problem details: etiology unknown at this point, moderate, with behavioral disturbance Has many risk factors for vascular dementia. Current visit: Yes Status: Acute (3) Peripheral edema Current visit: Yes Status: Acute (4) COPD (chronic obstructive pulmonary disease) Current visit: Yes Status: Acute (5) HTN (hypertension) Current visit: Yes Status: Acute (6) CHF (congestive heart failure) Current visit: Yes Status: Acute (7) CAD (coronary artery disease) Current visit: Yes Status: Acute (8) HLD (hyperlipidemia) Current visit: Yes Status: Acute Hospital Course Summary Disclaimer: The visit summary below is not to be considered part of the above Progress Note. Hospital Course: Impression Increased behaviors Acute on chronic peripheral edema- recent increased Lasix dose Chronic PVD HTN CHF COPD with o2 use PRN and Night CAD Hyperlipidemia Depression Plan Agree with admission to [facility] under the care of Dr Sharpe for evaluation of increase behaviors Medically he is noted to have erythema and mild edema to lower ext. It is unclear is baseline status of lower ext as he is not from locally. In reviewing old records it does appear that he chronically has lower extremity edema, accompanied with peripheral vascular disease. He chronically utilizes Sachin wraps to bilateral lower extremities. Previously from 10/19-10/29/17 patient was on Cefdinir for treatment of questionable lower extremity cellulitis. Then yesterday on 11/01/17 he was placed on Augmentin and doxycycline for ongoing tx of questionable cellulitis. Although this appears to be more inflammatory- we will continue antibiotics at this time and will add topical steroid cream to use BID to bilateral lower ext. Continue to follow carefully, Consult to wound team to make recommendations for wound care/ wraps. Upon reviewing custodial are. It does appear that Lasix dosing has continued to be titrated up since the beginning of October. Originally patient was on 40 milligrams twice a day, however, then on 10/24. This was increased to 60 milligrams twice a day. Then on 11/01/17 this was increased to 80 milligrams twice a day. Will need to monitor patient's fluid status, electro-lytes and renal function carefully given this increased dose of diuretics. Will have nursing staff weight daily. Encourage patient to participate in unit activities and provide a safe environment Hospital services will continue to follow patient medically managed. Consent comorbidities. At time of discharge medical care will return to primary care provider in [place], [place], Dr. Dat Szymanski Plan - 11/04/17 Nursing reports that patient has been cooperative with cares. Continue psychiatric care per Dr. Sharpe and team. Continue to provide safe and supportive environment. Prior wound culture from right leg collected on 10/31/17 prior to admission revealed rare staph epidermidis which appears penicillin resistant. He was started on Augmentin and doxycycline prior to admission. Will discontinue Augmentin given resistance. Chronicity of erythema is unclear. Will continue doxycycline and consult Dr. Hazel for further evaluation and treatment recommendations given right anterior scabbed wound without discharge. Pending wound care evaluation and recommendations. Pedal pulses diminished bilaterally. Would consider US to R/O DVT. Will discuss with Dr. Douglas. Given edema and recently documented hypoxia at 89% on room air while sleeping, will obtain orthostatic vital signs to better evaluate fluid status. Monitor daily weight closely for fluid retention. Renal function stable. CO2 continues to trend up. May consider Bumex for diuresis if indicated. CXR on showed no obvious pneumonia or congestive failure. Patient remains afebrile and WBC stable on 11/02. Oxygen as indicated to maintain SAO2 >90%, weaning as able. Consider over night oximetry for further evaluation of nocturnal oxygen demands. Psych 11/04/17: Increased Seroquel to 50mg BID at 0900 and 1600, 100mg at HS. Decreased lorazepam (from 1mg QID on admission) to 0.5mg PO BID at 0900 and 1600 , 1mg at HS. Would like to taper Ativan further as well as morphine. 11/05/17 PT tolerating decrease in Ativan. No behaviors. Continue current care 11/06/2017 Irritable at times but no behaviors. Continue current care
--- NOTE | 2017-11-06 16:18 | Progress Note ---
- Date 11/06/17 Subjective: Alfonso is seen today in follow up. He is awake, alert- playing Bingo. States he is not having fun, because "I never win." Reports that he and his played Bingo weekly at one time. He is feeling well overall, no c/o today. Chart is reviewed for collateral information. Objective Vital signs: Temperature 97.0 F 11/06/17 08:00 Pulse Rate 69 11/06/17 08:00 Respiratory Rate 16 11/06/17 15:58 Blood Pressure 103/54 11/06/17 08:00 Pulse Oximetry 92 11/06/17 09:56 Height/Weight/BMI: Height 1.88 m Weight 98 kg Body Mass Index 27.8 - Constitutional Present: no acute distress, cooperative - Routine HEENT Exam Head: Present: normocephalic, atraumatic Eye: Present: EOMI, PERRL ENT: Present: mucous membranes moist - Routine Respiratory Exam Present: decreased breath sounds, CTA bilaterally. Absent: rhonchi, wheezes, crackles - Routine Cardiovascular Exam Present: RRR, S1, S2 - Routine Abdominal Exam Present: soft, normoactive bowel sounds, tenderness - Routine Extremities Exam Absent: no edema Comments: Deferred full leg exam due to lack of privacy. - Routine Musculoskeletal Exam Musculoskeletal: Present: moving extremities well - Routine Skin Exam Present: intact, dry, warm - Routine Neurological Exam Present: alert, moving all extremities - Routine Psychiatric Exam Present: cooperative Results - Labs CBC & Chem 7: 11/02/17 08:03 11/05/17 06:38 Assessment and Plan (1) Abnormal behavior Current visit: Yes Status: Acute (2) PVD (peripheral vascular disease) Current visit: Yes Status: Acute Assessment and Plan: Impression Increased behaviors Acute on chronic peripheral edema- recent increased Lasix dose Chronic PVD HTN CHF COPD with o2 use PRN and Night CAD Hyperlipidemia Depression Possible LE cellulitis Plan - 11/06/17 Patient is improving in regards to behaviors. Continue Doxycycline for LE wound. Wound care recommending treatment with A&D ointment, no open areas. Repeat labs in AM. Consider DC Doxy soon. BP is fairly well controlled. Continue current. Potassium a bit low recently- repeat labs in AM. Will continue to follow. Resuscitation Status: Do Not Resuscitate - Physician Narrative Narrative: Date: 11/06/17 Time: 1614 Hospital Course Summary Disclaimer: The visit summary below is not to be considered part of the above Progress Note. Hospital Course: Impression Increased behaviors Acute on chronic peripheral edema- recent increased Lasix dose Chronic PVD HTN CHF COPD with o2 use PRN and Night CAD Hyperlipidemia Depression Plan Agree with admission to [facility] under the care of Dr Sharpe for evaluation of increase behaviors Medically he is noted to have erythema and mild edema to lower ext. It is unclear is baseline status of lower ext as he is not from locally. In reviewing old records it does appear that he chronically has lower extremity edema, accompanied with peripheral vascular disease. He chronically utilizes Sachin wraps to bilateral lower extremities. Previously from 10/19-10/29/17 patient was on Cefdinir for treatment of questionable lower extremity cellulitis. Then yesterday on 11/01/17 he was placed on Augmentin and doxycycline for ongoing tx of questionable cellulitis. Although this appears to be more inflammatory- we will continue antibiotics at this time and will add topical steroid cream to use BID to bilateral lower ext. Continue to follow carefully, Consult to wound team to make recommendations for wound care/ wraps. Upon reviewing retirement are. It does appear that Lasix dosing has continued to be titrated up since the beginning of October. Originally patient was on 40 milligrams twice a day, however, then on 10/24. This was increased to 60 milligrams twice a day. Then on 11/01/17 this was increased to 80 milligrams twice a day. Will need to monitor patient's fluid status, electro-lytes and renal function carefully given this increased dose of diuretics. Will have nursing staff weight daily. Encourage patient to participate in unit activities and provide a safe environment Hospital services will continue to follow patient medically managed. Consent comorbidities. At time of discharge medical care will return to primary care provider in [place], [place], Dr. Dat Szymanski Plan - 11/04/17 Nursing reports that patient has been cooperative with cares. Continue psychiatric care per Dr. Sharpe and team. Continue to provide safe and supportive environment. Prior wound culture from right leg collected on 10/31/17 prior to admission revealed rare staph epidermidis which appears penicillin resistant. He was started on Augmentin and doxycycline prior to admission. Will discontinue Augmentin given resistance. Chronicity of erythema is unclear. Will continue doxycycline and consult Dr. Yasemin for further evaluation and treatment recommendations given right anterior scabbed wound without discharge. Pending wound care evaluation and recommendations. Pedal pulses diminished bilaterally. Would consider US to R/O DVT. Will discuss with Dr. Douglas. Given edema and recently documented hypoxia at 89% on room air while sleeping, will obtain orthostatic vital signs to better evaluate fluid status. Monitor daily weight closely for fluid retention. Renal function stable. CO2 continues to trend up. May consider Bumex for diuresis if indicated. CXR on showed no obvious pneumonia or congestive failure. Patient remains afebrile and WBC stable on 11/02. Oxygen as indicated to maintain SAO2 >90%, weaning as able. Consider over night oximetry for further evaluation of nocturnal oxygen demands. Psych 11/04/17: Increased Seroquel to 50mg BID at 0900 and 1600, 100mg at HS. Decreased lorazepam (from 1mg QID on admission) to 0.5mg PO BID at 0900 and 1600 , 1mg at HS. Would like to taper Ativan further as well as morphine. 11/05/17 PT tolerating decrease in Ativan. No behaviors. Continue current care 11/06/2017 Irritable at times but no behaviors. Continue current care Plan - 11/06/17 Patient is improving in regards to behaviors. Continue Doxycycline for LE wound. Wound care recommending treatment with A&D ointment, no open areas. Repeat labs in AM. Consider DC Doxy soon. BP is fairly well controlled. Continue current. Potassium a bit low recently- repeat labs in AM. Will continue to follow.
[2017-11-06] MEDS: LORazepam 1 MG TABLET PO SCH ×2 (19:36→20:40)
[2017-11-06] MEDS: TAMSULOSIN 0.4 MG CAPSULE PO SCH ×2 (19:37→20:41)
[2017-11-06] MEDS: QUETIAPINE 100 MG TABLET PO SCH ×2 (19:37→20:40)
--- NOTE | 2017-11-07 08:09 | Progress Note ---
Progress Note: Labs reviewed. Hgb has dropped. No bloody stools or dizziness. Repeat on 11/09.
[2017-11-07] MEDS: FUROSEMIDE 80 MG TABLET PO SCH ×2 (09:11→14:38)
[2017-11-07] MEDS: LACTOBACILLUS (15B cfu) CAPSULE PO SCH ×2 (09:11→16:35)
[2017-11-07] MEDS: LORazepam 0.5 MG TABLET PO SCH ×2 (09:17→15:49)
[2017-11-07] MEDS: QUETIAPINE 50 MG TABLET PO SCH ×2 (09:17→16:35)
[2017-11-07] MEDS: CALCIUM CARBONATE Chewable 500mg TABLET PO SCH (09:19)
[2017-11-07] MEDS: HYDROCORTISONE 0.5% TOP SCH ×2 (09:20→20:24)
[2017-11-07] MEDS: ALBUTEROL/IPRATROPIUM 2.5mg-0.5mg/3ml NEB AEROSOL SCH ×3 (09:54→19:45)
--- NOTE | 2017-11-07 10:26 | General Surgery Consult Note ---
Consult date: 11/07/17 Attending Physician: Lore Sharpe MD Reason for consult: wound care [facility] Patient Stated Medical History Angina Yes Congestive Heart Failure Yes Coronary Artery Disease Yes Hypertension Yes Myocardial Infarction Yes Chronic Obstructive Pulmonary Yes Disease (COPD) Other GI Yes: POSTCHOLECYSTECTOMY SYNDROME Other Yes: HX BLADDER CANCER Depression Yes Medical History Updates: Metabolic encephalopathy. HL. AMI. PVD. Nicotine dependence. CHF. Bladder malignancy. MDD. CAD. Postcholecystectomy syndrome. HTN. COPD Surgical History: Tonsillectomy. Cholecystectomy. Cardiac bypass 3. Bladder procedures Family History: Mother- in her 70s from dementia - Social History Smoking status: Current every day smoker Housing: [facility] ([facility] in [place]) Medications Home Medications Medication Instructions Recorded Confirmed Type Albuterol/Ipratropium [Duoneb] 1 unit AEROSOL 5XD 11/02/17 11/02/17 History Amoxicillin/Potassium Clav 1 each PO BID 11/02/17 11/02/17 History [Augmentin 875-125 Tablet] CALCIUM CARBONATE Chewable [Tums] 1,000 mg PO Q4H PRN 11/02/17 11/02/17 History CALCIUM CARBONATE Chewable [Tums] 2 tab PO AM 11/02/17 11/02/17 History Doxycycline [Vibramycin] 100 mg PO BID 11/02/17 11/02/17 History Furosemide [Lasix] 80 mg PO BID 11/02/17 11/02/17 History Haloperidol [Haldol] 5 mg PO PRN PRN 11/02/17 11/02/17 History LORazepam [Ativan] 1 mg PO QID 11/02/17 11/02/17 History Morphine Sulfate 0.5 mg PO Q1H PRN 11/02/17 11/02/17 History Morphine Sulfate [Morphine Sulfate 15 mg PO BID 11/02/17 11/02/17 History ER] Oseltamivir Cap [Tamiflu] 75 mg PO DAILY 11/02/17 11/02/17 History PEG 3350 17gm PACKET [Miralax] 17 gm PO BID 11/02/17 11/02/17 History Potassium Chloride [K-Tab ER] 20 meq PO AM 11/02/17 11/02/17 History Quetiapine Fumarate [Seroquel] 100 mg PO HS 11/02/17 11/02/17 History Quetiapine [Seroquel] 50 mg PO DAILY 11/02/17 11/02/17 History Simethicone 125 mg PO Q6H PRN 11/02/17 11/02/17 History Tamsulosin [Flomax] 0.4 mg PO HS 11/02/17 11/02/17 History Allergies Allergy/AdvReac Type Severity Reaction Status Date / Time No Known Allergies Allergy Verified 11/02/17 09:11 Review of Systems 10-point ROS: negative except for HPI and the following: - Eyes/Ears/Nose/Throat Eyes: Present: vision problems (wears glasses) - Cardiovascular Cardiovascular: Present: edema/swelling - Musculoskeletal Musculoskeletal: Present: joint pain - Psychiatric Psychiatric: Present: other (inapropriate behaviors , psycholsis, confusion ( thinks he was just admitted this morning and does not have any idea why he is in [facility])) - Vital Signs Last Vital Signs Temp 97.7 F 11/07/17 00:44 Pulse 96 11/07/17 00:44 Resp 18 11/07/17 09:55 BP 118/52 11/07/17 00:44 Pulse Ox 91 11/07/17 09:55 - Laboratory Result Diagrams: 11/07/17 06:46 11/07/17 06:46 General Surgery Results - Results Labs: 11/07/17 06:46 11/07/17 06:46 Hospital Course Summary Disclaimer: The visit summary below is not to be considered part of the above Progress Note. Hospital Course: Impression Increased behaviors Acute on chronic peripheral edema- recent increased Lasix dose Chronic PVD HTN CHF COPD with o2 use PRN and Night CAD Hyperlipidemia Depression Plan Agree with admission to [facility] under the care of Dr Sharpe for evaluation of increase behaviors Medically he is noted to have erythema and mild edema to lower ext. It is unclear is baseline status of lower ext as he is not from locally. In reviewing old records it does appear that he chronically has lower extremity edema, accompanied with peripheral vascular disease. He chronically utilizes Sachin wraps to bilateral lower extremities. Previously from 10/19-10/29/17 patient was on Cefdinir for treatment of questionable lower extremity cellulitis. Then yesterday on 11/01/17 he was placed on Augmentin and doxycycline for ongoing tx of questionable cellulitis. Although this appears to be more inflammatory- we will continue antibiotics at this time and will add topical steroid cream to use BID to bilateral lower ext. Continue to follow carefully, Consult to wound team to make recommendations for wound care/ wraps. Upon reviewing [facility] are. It does appear that Lasix dosing has continued to be titrated up since the beginning of October. Originally patient was on 40 milligrams twice a day, however, then on 10/24. This was increased to 60 milligrams twice a day. Then on 11/01/17 this was increased to 80 milligrams twice a day. Will need to monitor patient's fluid status, electro-lytes and renal function carefully given this increased dose of diuretics. Will have nursing staff weight daily. Encourage patient to participate in unit activities and provide a safe environment Hospital services will continue to follow patient medically managed. Consent comorbidities. At time of discharge medical care will return to primary care provider in [place], [place], Dr. Dat Szymanski Plan - 11/04/17 Nursing reports that patient has been cooperative with cares. Continue psychiatric care per Dr. Sharpe and team. Continue to provide safe and supportive environment. Prior wound culture from right leg collected on 10/31/17 prior to admission revealed rare staph epidermidis which appears penicillin resistant. He was started on Augmentin and doxycycline prior to admission. Will discontinue Augmentin given resistance. Chronicity of erythema is unclear. Will continue doxycycline and consult Dr. Hazel for further evaluation and treatment recommendations given right anterior scabbed wound without discharge. Pending wound care evaluation and recommendations. Pedal pulses diminished bilaterally. Would consider US to R/O DVT. Will discuss with Dr. Douglas. Given edema and recently documented hypoxia at 89% on room air while sleeping, will obtain orthostatic vital signs to better evaluate fluid status. Monitor daily weight closely for fluid retention. Renal function stable. CO2 continues to trend up. May consider Bumex for diuresis if indicated. CXR on showed no obvious pneumonia or congestive failure. Patient remains afebrile and WBC stable on 11/02. Oxygen as indicated to maintain SAO2 >90%, weaning as able. Consider over night oximetry for further evaluation of nocturnal oxygen demands. Psych 11/04/17: Increased Seroquel to 50mg BID at 0900 and 1600, 100mg at HS. Decreased lorazepam (from 1mg QID on admission) to 0.5mg PO BID at 0900 and 1600 , 1mg at HS. Would like to taper Ativan further as well as morphine. 11/05/17 PT tolerating decrease in Ativan. No behaviors. Continue current care 11/06/2017 Irritable at times but no behaviors. Continue current care Plan - 11/06/17 Patient is improving in regards to behaviors. Continue Doxycycline for LE wound. Wound care recommending treatment with A&D ointment, no open areas. Repeat labs in AM. Consider DC Doxy soon. BP is fairly well controlled. Continue current. Potassium a bit low recently- repeat labs in AM. Will continue to follow.
[2017-11-07] MEDS: POLYETHYL GLYCOL 3350 17gm PACKET PO SCH ×2 (12:05→20:27)
--- NOTE | 2017-11-07 19:10 | Consultation ---
DATE OF CONSULTATION 11/07/2017 FINDINGS Mr. Bull is a 77-year-old gentleman whom I was asked to see today as a new patient as a result of his history and physical findings of cellulitis involving his right lower extremities. Patient was apparently recently admitted to our [facility] facility as a result of increased agitation, combativeness and confusion. Upon entering his room this evening the patient was resting comfortably in a recliner. He did not seem to be agitated this evening and was in good spirits. He informed me that he has had "problems with his legs" for quite some time. Patient states that his legs tend to appear slightly red. Patient states that a couple of weeks ago, however, his legs became more "more red than usual." Patient states that he was looking forward to supper this evening. He denied any open wounds involving his lower extremities. He denied any pain associated with his lower extremities. Patient apparently does have a past medical history significant for peripheral arterial disease. PAST MEDICAL HISTORY, PAST SURGICAL HISTORY, MEDICATIONS, ALLERGIES, SOCIAL HISTORY, FAMILY HISTORY, REVIEW OF SYSTEMS Performed by my nurse practitioner, Adolfo Gandara APRN. PHYSICAL EXAMINATION GENERAL: Mr. Bull is a 77-year-old male who this evening did not appear to be in acute distress. VITAL SIGNS: Temperature 96.8, pulse 62, respirations 16, blood pressure 1949, SAO2 90% on room air. HEENT: Normocephalic. Pupils are equally round and react to light and accommodation. CHEST: Clear to auscultation bilaterally. HEART: Regular rate and rhythm. Normal S1 and S2 without gallops, murmurs or clicks. ABDOMEN: Palpation of the abdomen reveals it to be soft and nontender. I do not appreciate any evidence for hepatosplenomegaly or other abnormal masses. EXTREMITIES: Attention was focused to his lower extremities. Patient did have erythema involving both the left and right anterior tibial surfaces. Erythema on the right was greater than the left. Palpation did reveal the skin to be somewhat warm to touch. Skin was somewhat hyperkeratotic involving lower extremity but there was no evidence for an open wound. There was a component of increased edema involving the soft tissues bilaterally, right greater than left. ASSESSMENT 77-year-old gentleman who was recently admitted as a result of increasing agitation, delirium. Patient with probable component of chronic venous insufficiency superimposed on cellulitis involving right lower extremity. PLAN I did review the patient's current medications. I do see that he is on doxycycline 100 mg p.o. b.i.d. I agree with empiric antibiotic treatment for suspected cellulitis. Given the fact that the patient does not have any open wounds there is no need for surgical debridement or advanced wound dressings. Would recommend that we continue with empiric treatment for cellulitis roughly over the course of next week. Patient may benefit from compression to his lower extremities by utilizing a [place] or Sachin wrap if he is able to leave on compression. Will continue to see the patient intermittently. DAHLIA
[2017-11-07] MEDS: LORazepam 1 MG TABLET PO SCH (20:26)
[2017-11-07] MEDS: TAMSULOSIN 0.4 MG CAPSULE PO SCH (20:28)
[2017-11-07] MEDS: QUETIAPINE 100 MG TABLET PO SCH (20:28)
--- NOTE | 2017-11-07 21:02 | Neuropsych Progress Note ---
[facility] Subjective Date: 11/08/17 - Sujective/Severity of Illness Medications: Albuterol/Ipratropium (Duoneb) 3 ml AEROSOL TID [facility] Last Admin: 11/07/17 17:21 Dose: 3 ml Calcium Carbonate (Tums) 1,000 mg PO DAILY [facility] Last Admin: 11/07/17 09:19 Dose: 1,000 mg Calcium Carbonate (Tums) 1,000 mg PO Q4H PRN PRN Reason: Epigastric distress Doxycycline Hyclate (Vibramycin) 100 mg PO BIDWM [facility] Last Admin: 11/07/17 16:35 Dose: 100 mg Furosemide (Lasix) 80 mg PO 0700,1400 [facility] Last Admin: 11/07/17 14:38 Dose: 80 mg Haloperidol (Haldol) 0.5 mg PO Q6H PRN PRN Reason: Extreme agitation Haloperidol Lactate (Haldol) 0.5 mg IM Q6H PRN PRN Reason: Extreme agitation Hydrocortisone (Cortisone Cream) 1 applic TOP BID [facility] Last Admin: 11/07/17 20:24 Dose: 1 applic Lactobacillus Acidophilus (Culturelle) 2 cap PO BIDWM [facility] Last Admin: 11/07/17 16:35 Dose: 2 cap Lorazepam (Ativan) 0.5 mg PO Q6H PRN PRN Reason: Extreme agitation Lorazepam (Ativan Inj) 0.5 mg IM Q6H PRN PRN Reason: Extreme agitation Lorazepam (Ativan) 1 mg PO HS [facility] Last Admin: 11/07/17 20:26 Dose: 1 mg Lorazepam (Ativan) 0.5 mg PO ,16 [facility] Last Admin: 11/07/17 15:49 Dose: 0.5 mg Morphine Sulfate (Ms Contin) 15 mg PO BID [facility] Last Admin: 11/07/17 20:26 Dose: 15 mg Polyethylene Glycol (Miralax) 17 gm PO BID [facility] Last Admin: 11/07/17 20:27 Dose: 17 gm Potassium Chloride (K-Dur) 20 meq PO WB [facility] Last Admin: 11/07/17 09:12 Dose: 20 meq Quetiapine Fumarate (Seroquel) 100 mg PO HS [facility] Last Admin: 11/07/17 20:28 Dose: 100 mg Quetiapine Fumarate (Seroquel) 50 mg PO 09,16 [facility] Last Admin: 11/07/17 16:35 Dose: 50 mg Simethicone (Phazyme) 125 mg PO Q6H PRN PRN Reason: Indigestion Sodium Chloride (Iv Flush) 10 - 80 ml IVF PRN PRN PRN Reason: Flushing Last Admin: 11/02/17 09:15 Dose: 30 ml Tamsulosin HCl (Flomax) 0.4 mg PO HS [facility] Last Admin: 11/07/17 20:28 Dose: 0.4 mg Subjective: Patient seen and chart reviewed. Case discussed with treatment team. On interview, patient is pleasant and cooperative. He can be irritable at times but calms quickly. He was exit-seeking briefly last night (~10 minutes) but calmed after HS meds were givne. Patient denies any SI, HI or AVH. Patient denies any adverse side effects related to psychotropic medications. Patient has been adherent with medications. Patient slept well overnight. VSS. Patient is eating well. Psychotropic PRNs required in the past 24 hours: none. Start Time: 18:40 Stop Time: 19:00 Mental Status Exam Vitals: Last Vital Signs Temp 96.8 F 11/07/17 17:00 Pulse 62 11/07/17 17:00 Resp 16 11/07/17 17:00 BP 140/59 H 11/07/17 17:00 Pulse Ox 90 11/07/17 17:00 Height: 1.88 m Weight: 98 kg - Mental Status Exam Muscle Strength/Tone: Normal Dressing: Casual Grooming: Fair Attitude: Cooperative Motor Activity: Normal Eye Contact: Fair Speech: Normal Volume: Normal Rhythm: Appropriate Rhythm Orientation: Disoriented to time, Disoriented to place, Disoriented to situation , Oriented to place Mood: Neutral (labile affect, worse in evenings - improving) Affect: Relaxed Rate of Thoughts: Delayed Thought Organization: Confused 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) Abstract Reasoning: Poor abstract reasoning Thought Content: Other (No abnormal thought content elicited other than confusion, out of context to situation) Perception/Psychotic: Perception Normal Language: Other (Difficulty with word-finding) Fund of Knowledge: Poor fund of knowledge Memory: Poor-recent Suicidal Ideation: Denies Homicidal Ideation: Denies Insight: Impaired Judgement: Impaired Impulse Control: Fair - Laboratory Result Diagrams: 11/07/17 06:46 11/07/17 06:46 Laboratory Results - last 24 hr 11/07/17 11/07/17 06:46 06:46 WBC 6.8 RBC 4.05 L Hgb 12.3 L Hct 38.8 L MCV 95.8 MCH 30.4 MCHC 31.7 RDW Std Deviation 43.1 Plt Count 204 MPV 9.4 Immature Gran % (Auto) 0.4 Neut % (Auto) 50.2 Lymph % (Auto) 33.0 [place] % (Auto) 9.0 Eos % (Auto) 6.5 H Baso % (Auto) 0.9 Neut # (Auto) 3.4 Lymph # (Auto) 2.2 [place] # (Auto) 0.6 Eos # (Auto) 0.4 Baso # (Auto) 0.1 Abs Immat Gran (auto) 0.03 Turbidity < 20 Sodium 141 Potassium 3.7 Chloride 101 Carbon Dioxide 32 H Anion Gap 8 BUN 15.0 Creatinine 1.0 GFR Calculation 72 BUN/Creatinine Ratio 15 Glucose 90 Calculated Osmolality 272 Calcium 8.8 Icterus Index < 2 Specimen Hemolysis < 15 Assessment and Plan (1) Major neurocognitive disorder Problem details: etiology unknown at this point, moderate, with behavioral disturbance Has many risk factors for vascular dementia. Current visit: Yes Status: Acute (2) Peripheral edema Current visit: Yes Status: Acute (3) COPD (chronic obstructive pulmonary disease) Current visit: Yes Status: Acute (4) HTN (hypertension) Current visit: Yes Status: Acute (5) CHF (congestive heart failure) Current visit: Yes Status: Acute (6) CAD (coronary artery disease) Current visit: Yes Status: Acute (7) HLD (hyperlipidemia) Current visit: Yes Status: Acute (8) PVD (peripheral vascular disease) Current visit: Yes Status: Acute Continue current care as patient is improving, irritability is transient and has not required PRN medications. Hospital Course Summary Disclaimer: The visit summary below is not to be considered part of the above Progress Note. Hospital Course: Impression Increased behaviors Acute on chronic peripheral edema- recent increased Lasix dose Chronic PVD HTN CHF COPD with o2 use PRN and Night CAD Hyperlipidemia Depression Plan Agree with admission to [facility] under the care of Dr Sharpe for evaluation of increase behaviors Medically he is noted to have erythema and mild edema to lower ext. It is unclear is baseline status of lower ext as he is not from locally. In reviewing old records it does appear that he chronically has lower extremity edema, accompanied with peripheral vascular disease. He chronically utilizes Sachin wraps to bilateral lower extremities. Previously from 10/19-10/29/17 patient was on Cefdinir for treatment of questionable lower extremity cellulitis. Then yesterday on 11/01/17 he was placed on Augmentin and doxycycline for ongoing tx of questionable cellulitis. Although this appears to be more inflammatory- we will continue antibiotics at this time and will add topical steroid cream to use BID to bilateral lower ext. Continue to follow carefully, Consult to wound team to make recommendations for wound care/ wraps. Upon reviewing [facility]. It does appear that Lasix dosing has continued to be titrated up since the beginning of October. Originally patient was on 40 milligrams twice a day, however, then on 10/24. This was increased to 60 milligrams twice a day. Then on 11/01/17 this was increased to 80 milligrams twice a day. Will need to monitor patient's fluid status, electro-lytes and renal function carefully given this increased dose of diuretics. Will have nursing staff weight daily. Encourage patient to participate in unit activities and provide a safe environment Hospital services will continue to follow patient medically managed. Consent comorbidities. At time of discharge medical care will return to primary care provider in [place], [place], Dr. Dat Szymanski Plan - 11/04/17 Nursing reports that patient has been cooperative with cares. Continue psychiatric care per Dr. Sharpe and team. Continue to provide safe and supportive environment. Prior wound culture from right leg collected on 10/31/17 prior to admission revealed rare staph epidermidis which appears penicillin resistant. He was started on Augmentin and doxycycline prior to admission. Will discontinue Augmentin given resistance. Chronicity of erythema is unclear. Will continue doxycycline and consult Dr. Hazel for further evaluation and treatment recommendations given right anterior scabbed wound without discharge. Pending wound care evaluation and recommendations. Pedal pulses diminished bilaterally. Would consider US to R/O DVT. Will discuss with Dr. Douglas. Given edema and recently documented hypoxia at 89% on room air while sleeping, will obtain orthostatic vital signs to better evaluate fluid status. Monitor daily weight closely for fluid retention. Renal function stable. CO2 continues to trend up. May consider Bumex for diuresis if indicated. CXR on showed no obvious pneumonia or congestive failure. Patient remains afebrile and WBC stable on 11/02. Oxygen as indicated to maintain SAO2 >90%, weaning as able. Consider over night oximetry for further evaluation of nocturnal oxygen demands. Psych 11/04/17: Increased Seroquel to 50mg BID at 0900 and 1600, 100mg at HS. Decreased lorazepam (from 1mg QID on admission) to 0.5mg PO BID at 0900 and 1600 , 1mg at HS. Would like to taper Ativan further as well as morphine. 11/05/17 PT tolerating decrease in Ativan. No behaviors. Continue current care 11/06/2017 Irritable at times but no behaviors. Continue current care Plan - 11/06/17 Patient is improving in regards to behaviors. Continue Doxycycline for LE wound. Wound care recommending treatment with A&D ointment, no open areas. Repeat labs in AM. Consider DC Doxy soon. BP is fairly well controlled. Continue current. Potassium a bit low recently- repeat labs in AM. Will continue to follow.
[2017-11-08] MEDS: ALBUTEROL/IPRATROPIUM 2.5mg-0.5mg/3ml NEB AEROSOL SCH ×3 (07:40→21:57)
[2017-11-08] MEDS: LACTOBACILLUS (15B cfu) CAPSULE PO SCH ×2 (08:36→17:45)
[2017-11-08] MEDS: LORazepam 0.5 MG TABLET PO SCH ×2 (08:37→17:45)
[2017-11-08] MEDS: QUETIAPINE 50 MG TABLET PO SCH ×2 (08:37→17:43)
[2017-11-08] MEDS: POLYETHYL GLYCOL 3350 17gm PACKET PO SCH ×2 (08:39→20:23)
[2017-11-08] MEDS: FUROSEMIDE 80 MG TABLET PO SCH ×2 (08:40→17:44)
[2017-11-08] MEDS: CALCIUM CARBONATE Chewable 500mg TABLET PO SCH (09:14)
[2017-11-08] MEDS: HYDROCORTISONE 0.5% TOP SCH ×2 (09:15→20:23)
--- NOTE | 2017-11-08 15:48 | Neuropsych Progress Note ---
[facility] Subjective Date: 11/08/17 - Sujective/Severity of Illness Medications: Albuterol/Ipratropium (Duoneb) 3 ml AEROSOL TID [facility] Last Admin: 11/08/17 13:26 Dose: 3 ml Calcium Carbonate (Tums) 1,000 mg PO DAILY [facility] Last Admin: 11/08/17 09:14 Dose: 1,000 mg Calcium Carbonate (Tums) 1,000 mg PO Q4H PRN PRN Reason: Epigastric distress Doxycycline Hyclate (Vibramycin) 100 mg PO BIDWM [facility] Last Admin: 11/08/17 08:36 Dose: 100 mg Furosemide (Lasix) 80 mg PO 0700,1400 [facility] Last Admin: 11/08/17 08:40 Dose: 80 mg Haloperidol (Haldol) 0.5 mg PO Q6H PRN PRN Reason: Extreme agitation Haloperidol Lactate (Haldol) 0.5 mg IM Q6H PRN PRN Reason: Extreme agitation Hydrocortisone (Cortisone Cream) 1 applic TOP BID [facility] Last Admin: 11/08/17 09:15 Dose: 1 applic Lactobacillus Acidophilus (Culturelle) 2 cap PO BIDWM [facility] Last Admin: 11/08/17 08:36 Dose: 2 cap Lorazepam (Ativan) 0.5 mg PO Q6H PRN PRN Reason: Extreme agitation Lorazepam (Ativan Inj) 0.5 mg IM Q6H PRN PRN Reason: Extreme agitation Lorazepam (Ativan) 1 mg PO HS [facility] Last Admin: 11/07/17 20:26 Dose: 1 mg Lorazepam (Ativan) 0.5 mg PO 09,16 [facility] Last Admin: 11/08/17 08:37 Dose: 0.5 mg Morphine Sulfate (Ms Contin) 15 mg PO BID [facility] Last Admin: 11/08/17 08:37 Dose: 15 mg Polyethylene Glycol (Miralax) 17 gm PO BID [facility] Last Admin: 11/08/17 08:39 Dose: 17 gm Potassium Chloride (K-Dur) 20 meq PO WB [facility] Last Admin: 11/08/17 08:36 Dose: 20 meq Quetiapine Fumarate (Seroquel) 100 mg PO HS [facility] Last Admin: 11/07/17 20:28 Dose: 100 mg Quetiapine Fumarate (Seroquel) 50 mg PO 09,16 [facility] Last Admin: 11/08/17 08:37 Dose: 50 mg Simethicone (Phazyme) 125 mg PO Q6H PRN PRN Reason: Indigestion Sodium Chloride (Iv Flush) 10 - 80 ml IVF PRN PRN PRN Reason: Flushing Last Admin: 11/02/17 09:15 Dose: 30 ml Tamsulosin HCl (Flomax) 0.4 mg PO HS [facility] Last Admin: 11/07/17 20:28 Dose: 0.4 mg Subjective: Patient seen and chart reviewed. Case discussed with treatment team. Patient is sleeping during rounds today. Per nursing staff, he has been in a better mood. If he gets irritable, it resolves fairly quickly without intervention. Patient denies any SI, HI or AVH. Patient denies any adverse side effects related to psychotropic medications. Patient has been adherent with medications. Patient slept well overnight. VSS. Patient is eating well. Psychotropic PRNs required in the past 24 hours: none. MSE below based in part on my last interaction with patient. Start Time: 10:00 Stop Time: 10:20 Mental Status Exam Vitals: Last Vital Signs Temp 97.0 F 11/08/17 08:28 Pulse 82 11/08/17 08:28 Resp 16 11/08/17 13:15 BP 126/70 11/08/17 08:28 Pulse Ox 90 11/08/17 08:28 Height: 1.88 m Weight: 98 kg - Mental Status Exam Muscle Strength/Tone: Normal Dressing: Casual Grooming: Fair Attitude: Cooperative Motor Activity: Normal Eye Contact: Fair Speech: Normal Volume: Normal Rhythm: Appropriate Rhythm Orientation: Disoriented to time, Disoriented to place, Disoriented to situation , Oriented to place Mood: Neutral (has some intermittent mild irritability - manageable without PRNs ) Rate of Thoughts: Delayed Thought Organization: Confused 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) Abstract Reasoning: Poor abstract reasoning Thought Content: Other (No abnormal thought content elicited other than confusion, out of context to situation) Perception/Psychotic: Perception Normal Current Hallucinations: Other (Unclear, patient endorses recent AVH but I do not believe this is reliable hsitory) Language: Other (Difficulty with word-finding) Fund of Knowledge: Poor fund of knowledge Memory: Poor-recent Suicidal Ideation: Denies Homicidal Ideation: Denies Insight: Impaired Judgement: Impaired Impulse Control: Fair - Laboratory Result Diagrams: 11/07/17 06:46 11/07/17 06:46 Assessment and Plan (1) Major neurocognitive disorder Problem details: etiology unknown at this point, moderate, with behavioral disturbance Has many risk factors for vascular dementia. Current visit: Yes Status: Acute (2) Peripheral edema Current visit: Yes Status: Acute (3) COPD (chronic obstructive pulmonary disease) Current visit: Yes Status: Acute (4) HTN (hypertension) Current visit: Yes Status: Acute (5) CHF (congestive heart failure) Current visit: Yes Status: Acute (6) CAD (coronary artery disease) Current visit: Yes Status: Acute (7) HLD (hyperlipidemia) Current visit: Yes Status: Acute (8) PVD (peripheral vascular disease) Current visit: Yes Status: Acute Patient doing well overall and behavior has been manageable. Will discuss discharge plans with LTC facility. Hospital Course Summary Disclaimer: The visit summary below is not to be considered part of the above Progress Note. Hospital Course: Impression Increased behaviors Acute on chronic peripheral edema- recent increased Lasix dose Chronic PVD HTN CHF COPD with o2 use PRN and Night CAD Hyperlipidemia Depression Plan [facility] under the care of Dr Sharpe for evaluation of increase behaviors Medically he is noted to have erythema and mild edema to lower ext. It is unclear is baseline status of lower ext as he is not from locally. In reviewing old records it does appear that he chronically has lower extremity edema, accompanied with peripheral vascular disease. He chronically utilizes Sachin wraps to bilateral lower extremities. Previously from 10/19-10/29/17 patient was on Cefdinir for treatment of questionable lower extremity cellulitis. Then yesterday on 11/01/17 he was placed on Augmentin and doxycycline for ongoing tx of questionable cellulitis. Although this appears to be more inflammatory- we will continue antibiotics at this time and will add topical steroid cream to use BID to bilateral lower ext. Continue to follow carefully, Consult to wound team to make recommendations for wound care/ wraps. Upon reviewing jail are. It does appear that Lasix dosing has continued to be titrated up since the beginning of October. Originally patient was on 40 milligrams twice a day, however, then on 10/24. This was increased to 60 milligrams twice a day. Then on 11/01/17 this was increased to 80 milligrams twice a day. Will need to monitor patient's fluid status, electro-lytes and renal function carefully given this increased dose of diuretics. Will have nursing staff weight daily. Encourage patient to participate in unit activities and provide a safe environment Hospital services will continue to follow patient medically managed. Consent comorbidities. At time of discharge medical care will return to primary care provider in [place], [place], Dr. Dat Szymanski Plan - 11/04/17 Nursing reports that patient has been cooperative with cares. Continue psychiatric care per Dr. Sharpe and team. Continue to provide safe and supportive environment. Prior wound culture from right leg collected on 10/31/17 prior to admission revealed rare staph epidermidis which appears penicillin resistant. He was started on Augmentin and doxycycline prior to admission. Will discontinue Augmentin given resistance. Chronicity of erythema is unclear. Will continue doxycycline and consult Dr. Hazel for further evaluation and treatment recommendations given right anterior scabbed wound without discharge. Pending wound care evaluation and recommendations. Pedal pulses diminished bilaterally. Would consider US to R/O DVT. Will discuss with Dr. Douglas. Given edema and recently documented hypoxia at 89% on room air while sleeping, will obtain orthostatic vital signs to better evaluate fluid status. Monitor daily weight closely for fluid retention. Renal function stable. CO2 continues to trend up. May consider Bumex for diuresis if indicated. CXR on showed no obvious pneumonia or congestive failure. Patient remains afebrile and WBC stable on 11/02. Oxygen as indicated to maintain SAO2 >90%, weaning as able. Consider over night oximetry for further evaluation of nocturnal oxygen demands. Psych 11/04/17: Increased Seroquel to 50mg BID at 0900 and 1600, 100mg at HS. Decreased lorazepam (from 1mg QID on admission) to 0.5mg PO BID at 0900 and 1600 , 1mg at HS. Would like to taper Ativan further as well as morphine. 11/05/17 PT tolerating decrease in Ativan. No behaviors. Continue current care 11/06/2017 Irritable at times but no behaviors. Continue current care Plan - 11/06/17 Patient is improving in regards to behaviors. Continue Doxycycline for LE wound. Wound care recommending treatment with A&D ointment, no open areas. Repeat labs in AM. Consider DC Doxy soon. BP is fairly well controlled. Continue current. Potassium a bit low recently- repeat labs in AM. Will continue to follow. 11/08/17 Psych: Patient doing well overall and behavior has been manageable. Will discuss discharge plans with LTC facility.
[2017-11-08] MEDS: LORazepam 1 MG TABLET PO SCH (20:23)
[2017-11-08] MEDS: QUETIAPINE 100 MG TABLET PO SCH (20:24)
[2017-11-08] MEDS: TAMSULOSIN 0.4 MG CAPSULE PO SCH (20:24)
[2017-11-09] MEDS: FUROSEMIDE 80 MG TABLET PO SCH ×2 (06:37→14:54)
[2017-11-09 08:07] VITALS: BP 102/60; PULSE 55; TEMP 97.4
[2017-11-09] MEDS: LACTOBACILLUS (15B cfu) CAPSULE PO SCH (08:19)
[2017-11-09] MEDS: CALCIUM CARBONATE Chewable 500mg TABLET PO SCH (08:19)
[2017-11-09] MEDS: POLYETHYL GLYCOL 3350 17gm PACKET PO SCH (08:20)
[2017-11-09] MEDS: HYDROCORTISONE 0.5% TOP SCH (08:20)
[2017-11-09] MEDS: LORazepam 0.5 MG TABLET PO SCH ×2 (08:20→14:21)
[2017-11-09] MEDS: QUETIAPINE 50 MG TABLET PO SCH ×2 (08:20→14:21)
[2017-11-09] MEDS: ALBUTEROL/IPRATROPIUM 2.5mg-0.5mg/3ml NEB AEROSOL SCH (08:45)
[2017-11-09 09:23] VITALS: RESP 16; O2SAT 94
--- NOTE | 2017-11-09 12:20 | Extended Care Facility Orders ---
Admission Orders Admit to:: [facility] Allergies/Adverse Reactions: Allergies No Known Allergies Allergy (Verified 11/02/17 09:11) Admitting Diagnosis: major cognitive disorder with behavioral disturban Admitting Physician: Lore Sharpe MD Attending Physician: Lore Sharpe MD Code Status: Do Not Resuscitate Anticiapted Length of Stay: greater than 30 days Rehab Potential: fair Rehab Prognosis: fair Diet: 11/02/17 Lunch Regular Diet [DIET] Diet Modifications: May use Facility Protocol or Standing Orders: Yes May have flu vaccine: Yes Evaluations/Treatment: Psychiatric, as needed Usp Certification: I certify that SNF services are required to be given on an Inpatient basis because of the patients need for correction care on a continuing basis for the condition(s) for which he/she received inpatient hospital services prior to his/her transfer to the SNF. SNF inpatient care is necessary for the following reasons Indication for Usp: Not Applicable - Additional Information In Event of Arrest: Do Not Start CPR Resident is Aware of Diagnosis: No (due to dementia) Referrals: Dat Szymanski MD [Family Provider] - 1 Week (Dr. Leah Szymanski on 11/16/17 at 10:45 am for Hosp. follow-up. [facility] [place] [id number] [place] [address] declines Mental Health follow-up.)
[2017-11-09] MEDS ORDERED: ACETAMINOPHEN 325 MG TABLET PO PRN (14:18)
== END 2017-11-09 15:05 | DRG 884 ==
LOC: ED 07:47 → GEN 11:55
PROVIDERS: ADMIT Psychiatry & Neurology Psychiatry; ATTEND Psychiatry & Neurology Psychiatry